=== PATIENT | female | born 1960 | race Two or more races ===

== ENCOUNTER 2024-04-29 23:22 | Inpatient (IN) | payer BC, SELFPAY ==
--- NOTE | 2024-04-29 | ECG_ITS ---
Test Reason : CHEST PAIN Blood Pressure : / mmHG Vent. Rate : 075 BPM Atrial Rate : 075 BPM P-R Int : 156 ms QRS Dur : 074 ms QT Int : 394 ms P-R-T Axes : 044 -28 018 degrees QTc Int : 439 ms Normal sinus rhythm Minimal voltage criteria for LVH, may be normal variant ( R in aVL ) Borderline ECG No previous ECGs available Referred By: Generic ED Physician Electronically Signed By:Vitor Perez
--- NOTE | ~2024-04-29 | XR_ITS ---
EXAMINATION: XR CHEST CLINICAL INFORMATION: chest pain COMPARISON: None available. TECHNIQUE: 2 views of the chest were obtained. FINDINGS: No significant abnormality is noted involving the heart, lungs, mediastinum, bony thorax or soft tissues. XR/XR chest 2V IMPRESSION: Unremarkable examination. Electronically signed by: Jonathon Hardwick MD 04/30/2024 03:50 AM [facility] [place]
[2024-04-29 23:25] VITALS: BP 182/93; PULSE 82; RESP 14; TEMP 36.3; O2SAT 96; BMI 35.1
[2024-04-29 23:51] LABS: Basophils Percent Auto 0.4 % (0-2); Eosinophils Absolute Auto 0.3 X10*3/uL (0.0-0.4); Eosinophils Percent Auto 2.8 % (0-4); Hemoglobin 13.5 g/dl (12.0-16.0); Imm Gran Abs Auto 0.02 X10*3/uL (0.00-0.03); Imm Gran Pct Auto 0.2 % (0.0-0.4); Lymphocytes Absolute Auto 2.7 X10*3/uL (1.2-4.9); Lymphocytes Percent Auto 28.3 % (20-40); MANUAL DIFF FLAG NO; Mean Corpuscular HGB Conc 33.8 g/dl (31.0-35.0); Mean Corpuscular Hemoglobin 28.5 pg (27.0-33.0); Mean Corpuscular Volume 84.4 fL (80.0-98.0); Mean Platelet Volume 9.7 fL (9.4-12.3); Monocytes Absolute Auto 0.8 X10*3/uL (0.1-1.2); Monocytes Percent Auto 8.6 % (2-11); Neutrophils Absolute Auto 5.6 x10*3/uL (2.0-8.3); Neutrophils Percent Auto 59.7 % (45-73); Platelet Count 330 X10*3/uL (160-400); Red Blood Count 4.74 X10*6/uL (4.20-5.50); Red Cell Distribution Width 13.9 % (11.0-16.0); White Blood Count 9.4 X10*3/uL (4.8-10.8)
[2024-04-30] VITALS (8 sets, daily range): BP systolic 128–167; BP diastolic 72–87; PULSE 60–73; RESP 14–16; TEMP 36.8; O2SAT 93–97
[2024-04-30 00:14] LABS: Alanine Aminotransferase 34 U/L (0-31); Albumin Level 3.9 g/dL (3.5-5.0); Alkaline Phosphatase 88 U/L (39-117); Anion Gap 11 (12-20); Aspartate Amino Transferase 93 U/L (5-31); Bilirubin Total 0.5 mg/dL (0.0-1.0); Blood Urea Nitrogen 10 mg/dL (9-16); Calcium 9.6 mg/dL (8.4-10.2); Carbon Dioxide 26 mmol/L (22-29); Chloride 106 mmol/L (96-108); Creatinine Clr Calc Pharmacy 74.5; Estimated Glomerular Filt Rate > 60; Glucose Random 121 mg/dL (60-115); Potassium 3.7 mmol/L (3.3-5.1); Sodium 139 mmol/L (135-145); Total Protein 8.1 g/dL (6.5-8.0)
[2024-04-30 00:40] LABS: Troponin-I High Sensitivity 7232.9 ng/L (<3.5-17.0)
--- NOTE | 2024-04-30 00:45 | ED.CHESTPAIN ---
HPI - Chest Pain General Chief Complaint: Chest Pain Stated Complaint: chest pains Time Seen by Provider: 04/30/24 00:45 Source: patient Mode of arrival: ambulatory Limitations: no limitations History of Present Illness ED Provider: HPI narrative: Patient no significant past medical history has a strong family history of cardiac disease was at home working sitting on the desk at 14:00 noticed mid chest pain radiating to bilateral chest which lasted for about 2 hours pain was heavy in nature without any radiation no shortness a breath no diaphoresis no nausea no vomit patient never had similar pain in the past patient's took some Tums without much Related Data Home Medications ?Medication ?Instructions ?Recorded ?Confirmed No Known Home Meds 04/30/24 04/30/24 Allergies Allergy/AdvReac Type Severity Reaction Status Date / Time amoxicillin Allergy Rash Verified 04/29/24 23:29 Sulfa (Sulfonamide Allergy Rash Verified 04/29/24 23:29 Antibiotics) Review of Systems Review of Systems: Yes all other systems are reviewed and are negative [facility] Past Medical History Surgical History (Updated 04/30/24 @ 03:54 by Ramakrishna Ibarra MD) Status post hysteroscopic surgical removal of uterine septum Social History Social History Alcohol intake: never Smoked in Last 30 Days: No Use of substances other than those prescribed or required for medical reasons: No Advance Directives: No Do you have a plan to hurt others: No Plan Patient : No Physical Exam Vital Signs: Vital Signs: Last Vital Signs Temp 98.3 F 04/30/24 02:15 Pulse 63 04/30/24 04:54 Resp 16 04/30/24 04:54 BP 128/72 04/30/24 04:54 Pulse Ox 96 04/30/24 04:54 O2 Del Method Room Air 04/30/24 04:54 BMI result Body Mass Index 35.1 Appearance: Alert. Oriented X3. No acute distress. Eyes: PERRLA, No Nystagmus ENT: Pharynx normal. Oral Mucosa moist Neck: Normal inspection. Neck supple. CVS: Normal heart rate and rhythm. Pulses normal. No murmur/rubs/CT Respiratory: No respiratory distress. Equal air entry bilateral, no wheezing/rales/rhonchi Abdomen: Soft and nontender. Bowel sounds are present, no mass palpable, no CVA tenderness Skin: Skin warm and dry. Normal skin color. Normal skin turgor. Extremities: No lower extremity edema. No calf tenderness Neuro: Oriented X 3. No motor deficit. No sensory deficit.No cerebellar signs , cranial nerves II-XII intact Medications Administered Generic Name Dose Route Start Last Admin Trade Name Freq PRN Reason Stop Dose Admin Heparin Sodium/Sodium Chloride 25,000 unit in 250 mls @ 0 mls/hr 04/30/24 01:15 04/30/24 01:26 Heparin Sodium,Porcine/1/2ns IVCONT 12 units/kg/hr .Q0M ANTHONY 9.79 mls/hr Administration Protocol Per Protocol Discontinued Medications Generic Name Dose Route Start Last Admin Trade Name Freq PRN Reason Stop Dose Admin Aspirin 162 mg 04/30/24 01:09 04/30/24 01:13 Aspirin Enteric Coated 81 Mg Tablet.Dr VALENCIA 04/30/24 01:10 162 mg ONCE ONE Administration Atorvastatin Calcium 80 mg 04/30/24 03:58 04/30/24 04:52 Atorvastatin Calcium 80 Mg Tablet PO 04/30/24 03:59 80 mg ONCE ONE Administration Heparin Sodium (Porcine) 5,000 unit 04/30/24 01:03 04/30/24 01:14 Heparin Sodium,Porcine 5,000 Unit/Ml Vial IVPUSH 04/30/24 01:04 5,000 unit ONCE ONE Administration Metoprolol Tartrate 25 mg 04/30/24 04:30 04/30/24 04:52 Metoprolol Tartrate 25 Mg Tablet PO 04/30/24 04:31 25 mg ONCE STA Administration Protocol Nitroglycerin 1 inch 04/30/24 01:09 04/30/24 01:13 Nitroglycerin 2 % Oint 1 Gm Packet TRANSDERMA 04/30/24 01:10 1 inch ONCE ONE Administration Medical Decision Making Medical Decision Making MDM Narrative: Patient with sudden onset of chest pain clinically cardiac in nature no chest pain at this time EkG without any ischemic changes elevated to 7232.9 case discussed with business services vice president Dr. Perez advised heparin, NPO after midnight cardiac catheterization in the a.m. Differential Diagnosis Differential Diagnoses: The differential diagnosis associated with the presentation includes Admission/Observation Consideration of admission/observation: Escalation of care including admission/observation considered Consult Healthcare Provider Management of the patient was discussed with: Hospitalist Lab Data MDM Lab Attestation statement: I reviewed the patient's lab results. 04/30/24 04:27 04/30/24 04:27 Labs: Lab Results 04/29/24 04/29/24 04/30/24 Range/Units 23:44 23:45 00:55 WBC 9.4 (4.8-10.8) X10*3/uL RBC 4.74 (4.20-5.50) X10*6/uL Hgb 13.5 (12.0-16.0) g/dl Hct 40.0 (37.0-47.0) % MCV 84.4 (80.0-98.0) fL MCH 28.5 (27.0-33.0) pg MCHC 33.8 (31.0-35.0) g/dl RDW 13.9 (11.0-16.0) % Plt Count 330 (160-400) X10*3/uL MPV 9.7 (9.4-12.3) fL Immature Gran % (Auto) 0.2 (0.0-0.4) % Neut % (Auto) 59.7 (45-73) % Lymph % (Auto) 28.3 (20-40) % [place] % (Auto) 8.6 (2-11) % Eos % (Auto) 2.8 (0-4) % Baso % (Auto) 0.4 (0-2) % Lymph # (Auto) 2.7 (1.2-4.9) X10*3/uL [place] # (Auto) 0.8 (0.1-1.2) X10*3/uL Eos # (Auto) 0.3 (0.0-0.4) X10*3/uL Baso # (Auto) 0.0 (0.0-0.2) X10*3/uL Abs Immat Gran (auto) 0.02 (0.00-0.03) X10*3/uL Absolute Neuts (auto) 5.6 (2.0-8.3) x10*3/uL Absolute Nucleated RBC 0.000 (0.0-0.012) X10*3/uL Nucleated RBC % (auto) 0.0 (0.0-0.2) /100WBC PT 12.5 H (10.9-12.4) SEC INR 1.1 (0.9-1.1) APTT 29.3 (26.0-36.8) SEC Hold Blue Top SEE NOTE Sodium 139 (135-145) mmol/L Potassium 3.7 (3.3-5.1) mmol/L Chloride 106 (96-108) mmol/L Carbon Dioxide 26 (22-29) mmol/L Anion Gap 11 L (12-20) BUN 10 (9-16) mg/dL Creatinine 0.75 (0.5-1.4) mg/dL Estim Creat Clear Calc 74.5 Estimated GFR > 60 Random Glucose 121 H (60-115) mg/dL Calcium 9.6 (8.4-10.2) mg/dL Total Bilirubin 0.5 (0.0-1.0) mg/dL AST 93 H (5-31) U/L ALT 34 H (0-31) U/L Alkaline Phosphatase 88 (39-117) U/L Troponin I High Sens 7232.9 H* 7003.3 H* (<3.5-17.0) ng/L Total Protein 8.1 H (6.5-8.0) g/dL Albumin 3.9 (3.5-5.0) g/dL Independent Interpretation I performed an independent interpretation of an: EKG Interpretation: Normal sinus rhythm heart rate 75 beats per minute normal axis no acute ST-T changes no acute ischemia Critical Care Time Critical Care Time Critical Care Time: Yes Total Critical Care Time: 55 Attestation: The patient was critically ill with a high probability of imminent or life threatening deterioration. I spent greater than 60???minutes of discontinuous time evaluating the patient,delivering critical care at the bedside, discussing and evaluating pertinent data with consultants. Critical care time does not include time spent performing separately billable procedures or teaching. Total time spent performing critical care was 55???minutes. Discharge Plan Discharge Clinical Impression: NSTEMI (non-ST elevated myocardial infarction) Patient Disposition: Admitted As Inpatient
--- NOTE | 2024-04-30 00:47 | PC.NURSE ---
critical troponin received from lab and pt brought back to ED room 4. MD Burton notified. pt ambulated into tx room steady gait, changed into gown and placed onto patient monitor.
--- NOTE | 2024-04-30 00:57 | ECG_ITS ---
Test Reason : REPEAT Blood Pressure : / mmHG Vent. Rate : 080 BPM Atrial Rate : 080 BPM P-R Int : 162 ms QRS Dur : 074 ms QT Int : 376 ms P-R-T Axes : 052 -12 009 degrees QTc Int : 433 ms Normal sinus rhythm Normal ECG When compared with ECG of 29-APR-2024 23:28, No significant change was found Referred By: Ayaan Burton Electronically Signed By:Vitor Perez
[2024-04-30 01:12] LABS: INTERNATIONAL NORM RATIO 1.1 (0.9-1.1); Prothrombin Time 12.5 SEC (10.9-12.4)
[2024-04-30] MEDS: Aspirin Enteric Coated 81 MG TABLET.DR 162 MG PO (01:13)
[2024-04-30] MEDS: Nitroglycerin 2 % Oint 1 GM Packet 1 INCH TRANSDERMA (01:13)
[2024-04-30 01:14] LABS: Partial Thromboplastin Time 29.3 SEC (26.0-36.8)
[2024-04-30] MEDS: Heparin Sodium,Porcine 5,000 UNIT/ML VIAL 5000 UNIT IVPUSH (01:14)
[2024-04-30] MEDS: Heparin Sodium,Porcine/1/2NS 25,000 UNIT/250 ML IV.SOLN 9.79 UNIT IVCONT (01:26)
[2024-04-30 01:46] LABS: Troponin-I High Sensitivity 7003.3 ng/L (<3.5-17.0)
--- NOTE | 2024-04-30 02:48 | PC.NURSE ---
pt ambulatory with steady gait to ed4 from after critical result received for elevated lab results reported to MD Burton. pt changed over to hospital attire, placed on continuous cardiac, o2 and BP monitoring. 2x iv established. labs and repeat ekg obtained. pt is well appearing axox4 speaking full clear sentences, skin wpd, denies sob/n/v at this time, reporting L. sided chest discomfort without radiation. pt states sx onset 1400 and lasted until approx 1600. pt has not been evaluated medically in years and is not on any medications but reports family hx of htn/cardiac issues. MD educated pt on lab results and findings, pt denied questions/concerns. heparin drip started per jul. hospitalist to bedside at this time for admission, awaiting admit orders. pt moved to ed3 per pt request/propellant charge loader approval for private room. at bedside. call farah within reach. pt remains on continuous cardiac, o2 and BP monitoring.
--- NOTE | 2024-04-30 03:13 | PM.IMHP ---
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 Onset of pain was spontaneous with no readily identifiable exacerbating factors. She describes the chest tightness as radiating across her chest. She felt like she had a heartburn so took some TUMS and Abby-seltzer without any relief. She has never had similar pains before and denies any personal history of ACS or family history of premature coronary artery disease. She also denies any associated shortness of breath, nausea, vomiting, diaphoresis or palpitations. Initial workup done in the emergency room was notable for elevated high sensitivity troponin I at 7003 ng/L. She also had minimally elevated AST and ALT. EKG did not show any acute ischemic changes. She received aspirin and was started on heparin drip following which admission was requested. When I saw her, she was fairly comfortable though still reported some left-sided chest discomfort. Review of Systems Review of Systems: Twelve system review was completed and is noted above in the HPI. Otherwise the rest of the system review is negative. [facility] Functional capacity: independent ambulation Patient : No Pertinent family history: Father: Type 2 diabetes mellitus; coronary artery disease; data age 83 of kidney failure. Mother: Type 2 diabetes mellitus. Brother: WBC is mellitus. Surgical History (Updated 04/30/24 @ 03:54 by Ramakrishna Ibarra MD) Status post hysteroscopic surgical removal of uterine septum Social History Alcohol intake: never Meds Allergies Allergy/AdvReac Type Severity Reaction Status Date / Time amoxicillin Allergy Rash Verified 04/29/24 23:29 Sulfa (Sulfonamide Allergy Rash Verified 04/29/24 23:29 Antibiotics) Home Medications ?Medication ?Instructions ?Recorded ?Confirmed ?Last Taken ?Type No Known Home Meds 04/30/24 04/30/24 Unknown History Physical Exam Vital Signs and Narrative: Vital Signs: Last Vital Signs Temp 98.3 F 04/30/24 02:15 Pulse 65 04/30/24 02:15 Resp 14 04/30/24 02:15 BP 158/85 H 04/30/24 02:15 Pulse Ox 96 04/30/24 02:15 O2 Del Method Room Air 04/30/24 02:15 BMI result Body Mass Index 35.1 General: Middle aged female in bed. Awake and alert. In no obvious respiratory distress. Psychiatric: Pleasant with normal affect. HEENT: Normocephalic, atraumatic. No pallor or jaundice. Moist oral mucus membranes Neck: Supple. No JVD Lungs: Clear to auscultation bilaterally. No rales, rhonchi or wheezes Heart: RRR. Normal s1/s2. No murmurs, rubs or gallops. No peripheral edema. Abdomen: Scaphoid, Soft, non-tender. Normoactive bowel sounds. No visceromegaly. Genitourinary: Deferred Back/Spine/Pelvis: Deferred Skin: Warm, dry, well perfused. Normal turgor. No mottling. Normal capillary refill (< 2 seconds). Neurologic: Awake and alert. Intact speech & cognition. Normal gait & balance. CN II-XII grossly normal. Extremities: Normal muscle bulk, tone and power. No obvious deformities. No peripheral edema. Good peripheral pulses. Results Labs 04/29/24 23:45 04/29/24 23:45 Labs: Laboratory Results - last 24 hr 04/29/24 04/29/24 04/30/24 23:44 23:45 00:55 MCV 84.4 MCH 28.5 MCHC 33.8 RDW 13.9 Plt Count 330 MPV 9.7 Immature Gran % (Auto) 0.2 Neut % (Auto) 59.7 Lymph % (Auto) 28.3 [place] % (Auto) 8.6 Eos % (Auto) 2.8 Baso % (Auto) 0.4 Lymph # (Auto) 2.7 [place] # (Auto) 0.8 Eos # (Auto) 0.3 Baso # (Auto) 0.0 Abs Immat Gran (auto) 0.02 Absolute Neuts (auto) 5.6 Absolute Nucleated RBC 0.000 Nucleated RBC % (auto) 0.0 PT 12.5 H INR 1.1 APTT 29.3 Hold Blue Top SEE NOTE Anion Gap 11 L Estim Creat Clear Calc 74.5 Estimated GFR > 60 Random Glucose 121 H Calcium 9.6 Total Bilirubin 0.5 AST 93 H ALT 34 H Alkaline Phosphatase 88 Troponin I High Sens 7232.9 H* 7003.3 H* Total Protein 8.1 H Albumin 3.9 ECG ECG interpretation date: 04/30/24 ECG interpretation time: 04:00 Prior ECG tracings: available for review Interpretation: Normal sinus rhythm at 75 beats per minute no acute ischemic changes. Assessment and Plan (1) NSTEMI (non-ST elevated myocardial infarction): Start date: 04/29/24 Status: Acute 63-year-old female with no significant medical problems here with #NSTEMI -she presents with chest pain that is atypical for ACS -found with elevated high sensitivity troponin I at 7003 ng/liter -admit and continue heparin drip, topical nitroglycerin,, aspirin, beta blockers and statins -Cardiology consult & 2D echo in the morning -will benefit from cardiac catheterization. Total time managing care of this patient today: 80 minutes. Quality Stroke Does the patient have a stroke diagnosis?: No VTE Prior VTE?: No VTE Risk Level:: Medical - moderate - high VTE Device Contraindication: Treatment Not Indicated VTE Drug Contraindication: N/A - Med Ordered
[2024-04-30 04:46] LABS: MANUAL DIFF FLAG NO
[2024-04-30 04:48] LABS: Basophils Absolute Auto 0.1 X10*3/uL (0.0-0.2); Basophils Percent Auto 0.6 % (0-2); Eosinophils Absolute Auto 0.2 X10*3/uL (0.0-0.4); Eosinophils Percent Auto 2.4 % (0-4); Hemoglobin 12.9 g/dl (12.0-16.0); Imm Gran Abs Auto 0.03 X10*3/uL (0.00-0.03); Imm Gran Pct Auto 0.3 % (0.0-0.4); Lymphocytes Absolute Auto 1.9 X10*3/uL (1.2-4.9); Lymphocytes Percent Auto 20.6 % (20-40); Mean Corpuscular HGB Conc 33.1 g/dl (31.0-35.0); Mean Corpuscular Hemoglobin 28.2 pg (27.0-33.0); Mean Corpuscular Volume 85.3 fL (80.0-98.0); Mean Platelet Volume 9.8 fL (9.4-12.3); Monocytes Absolute Auto 0.7 X10*3/uL (0.1-1.2); Monocytes Percent Auto 7.3 % (2-11); Neutrophils Absolute Auto 6.4 x10*3/uL (2.0-8.3); Neutrophils Percent Auto 68.8 % (45-73); Platelet Count 324 X10*3/uL (160-400); Red Blood Count 4.57 X10*6/uL (4.20-5.50); Red Cell Distribution Width 13.9 % (11.0-16.0); White Blood Count 9.3 X10*3/uL (4.8-10.8)
[2024-04-30] MEDS: Metoprolol Tartrate 25 MG TABLET PO (04:52)
[2024-04-30] MEDS: Atorvastatin Calcium 80 MG TABLET PO (04:52)
[2024-04-30 05:10] LABS: Anion Gap 14 (12-20); Blood Urea Nitrogen 9 mg/dL (9-16); Carbon Dioxide 24 mmol/L (22-29); Chloride 107 mmol/L (96-108); Cholesterol 140 mg/dL (<200); Creatinine Clr Calc Pharmacy 76.5; Estimated Glomerular Filt Rate > 60; Glucose Random 117 mg/dL (60-115); HDL Cholesterol 42 mg/dL (>40); LDL Cholesterol Calculated 87 mg/dL (<100); Potassium 3.7 mmol/L (3.3-5.1); Sodium 141 mmol/L (135-145); Triglycerides 57 mg/dL (<150)
[2024-04-30 05:25] LABS: Thyroid Stimulating Hormone 0.84 uIU/mL (0.32-4.0)
[2024-04-30] MEDS: Aspirin 81 MG TAB.CHEW PO (08:34)
[2024-04-30] MEDS: Acetaminophen 325 MG TABLET 650 MG PO (08:34)
[2024-04-30 08:35] LABS: PTT Heparin Drip 67.7 SEC (53-77.9)
--- NOTE | 2024-04-30 08:55 | PHA.MEDREC ---
Addendum entered by Barrie Haider RPh 04/30/24 09:45: Med rec reviewed by Bella. Original Note: Pharmacy Consult ? Medication Reconciliation Pharmacy has completed the medication reconciliation. Spoke with patient and she confirmed she has been alternating and taking Tylenol 500mg tabs 1-2 daily as needed for pain and Advil 200mg 1-2 daily as needed for pain and states she last took the Tylenol yesterday and the Advil on Sunday.
--- NOTE | 2024-04-30 09:13 | P.CONCA_ITS ---
History of Present Illness History of Present Illness Date of Service: 04/30/24 Requesting physician: Dusty Napoles Chief complaint: NSTEMI Narrative: Pleasant 63 year female with no known medical history presenting with chest discomfort starting around 14:23 yesterday while she was at work. 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 She said she had indigestion like feeling as well as chest pressure. She said she took some Tums and Abby-Range which improved the discomfort but it did not go away completely. With these symptoms she presented to [facility] [place]. EKGs did not show any obvious changes except some nonspecific T-wave changes in inferior leads. She ruled in for NSTEMI and was started on heparin drip. She is saying she has slight discomfort in the chest currently but the severe indigestion like feeling that was present when the symptoms started yesterday has completely resolved. No bleeding issues. She has allergies to amoxicillin and sulfa. [facility] Surgical History Surgical History (Updated 04/30/24 @ 03:54 by Ramakrishna Ibarra MD) Status post hysteroscopic surgical removal of uterine septum Social History Social History Alcohol intake: never Meds Allergies Allergy/AdvReac Type Severity Reaction Status Date / Time amoxicillin Allergy Rash Verified 04/29/24 23:29 Sulfa (Sulfonamide Allergy Rash Verified 04/29/24 23:29 Antibiotics) Active Medications: Current Medications Acetaminophen (Acetaminophen 325 Mg Tablet) 650 mg PO Q6H PRN PRN Reason: Pain, Mild (Pain Scale 1-3), fever or headache Last Admin: 04/30/24 08:34 Dose: 650 mg Aspirin (Aspirin 81 Mg Tab.Chew) 81 mg PO DAILY ANTHONY Last Admin: 04/30/24 08:34 Dose: 81 mg Atorvastatin Calcium (Atorvastatin Calcium 80 Mg Tablet) 80 mg PO BEDTIME ANTHONY Calcium Carbonate (Calcium Carbonate 750 Mg Tab.Chew) 750 mg PO Q4H PRN PRN Reason: Heartburn Heparin Sodium (Porcine) (Heparin Sodium,Porcine 5,000 Unit/Ml Vial) 3,300 unit 40 unit/kg (3300 unit) IVPUSH PROTOCOL BOLUS PRN PRN Reason: 40 unit/kg - Heparin Protocol Heparin Sodium (Porcine) (Heparin Sodium,Porcine 5,000 Unit/Ml Vial) 6,500 unit 80 unit/kg (6500 unit) IVPUSH PROTOCOL BOLUS PRN PRN Reason: 80 unit/kg - Heparin Protocol Heparin Sodium/Sodium Chloride (Heparin Sodium,Porcine/1/2ns) 25,000 unit in 250 mls @ 0 mls/hr IVCONT .Q0M [facility]; Protocol Last Admin: 04/30/24 01:26 Dose: 12 units/kg/hr, 9.79 mls/hr Magnesium Hydroxide (Milk Of Magnesia 30 Ml Oral.Susp) 30 ml PO DAILY PRN PRN Reason: Constipation Melatonin (Melatonin 3 Mg Tablet) 6 mg PO BEDTIME PRN PRN Reason: Insomnia Metoprolol Tartrate (Metoprolol Tartrate 25 Mg Tablet) 25 mg PO BID [facility]; Protocol Morphine Sulfate (Morphine Sulfate 4 Mg/Ml Cartridge) 2 mg IVPUSH Q4H PRN; Protocol PRN Reason: Pain, Severe (Pain Scale 7-10) Nitroglycerin (Nitroglycerin 0.4 Mg Tab.Subl) 0.4 mg SUBLINGUAL Q5MX3 PRN PRN Reason: Chest Pain Sodium Chloride (0.9 % Sodium Chloride Flush 3 Ml Syringe) 3 ml IVFLUSH QSHIFT [facility] Last Admin: 04/30/24 08:21 Dose: Not Given Home Medications ?Medication ?Instructions ?Recorded ?Confirmed ?Last Taken ?Type acetaminophen 500 mg tablet 500 - 1,000 mg PO DAILY PRN Pain 04/30/24 04/30/24 04/29/24 History ibuprofen 200 mg tablet (Advil) 200 - 400 mg PO DAILY PRN Pain 04/30/24 04/30/24 04/27/24 History Physical Exam 2 Vital Signs: Vital Signs: Last Vital Signs Temp 98.3 F 04/30/24 02:15 Pulse 63 04/30/24 04:54 Resp 16 04/30/24 04:54 BP 128/72 04/30/24 04:54 Pulse Ox 96 04/30/24 04:54 O2 Del Method Room Air 04/30/24 04:54 BMI result Body Mass Index 35.1 GENERAL APPEARANCE: in no acute distress, pleasant. NECK: no carotid bruit, no jugular venous distention. SKIN: no suspicious lesions, warm and dry. HEART: no murmurs, regular rate and rhythm. LUNGS: clear to auscultation bilaterally. ABDOMEN: soft, nontender. EXTREMITIES: no edema. PERIPHERAL PULSES: equal. NEUROLOGIC: No gross deficits, AAO X 3 Objective Labs and Meds 04/30/24 04:27 04/30/24 04:27 Lab results: Laboratory Results - last 24 hr 04/29/24 04/29/24 04/30/24 23:44 23:45 00:55 WBC 9.4 RBC 4.74 Hgb 13.5 Hct 40.0 MCV 84.4 MCH 28.5 MCHC 33.8 RDW 13.9 Plt Count 330 MPV 9.7 Immature Gran % (Auto) 0.2 Neut % (Auto) 59.7 Lymph % (Auto) 28.3 [place] % (Auto) 8.6 Eos % (Auto) 2.8 Baso % (Auto) 0.4 Lymph # (Auto) 2.7 [place] # (Auto) 0.8 Eos # (Auto) 0.3 Baso # (Auto) 0.0 Abs Immat Gran (auto) 0.02 Absolute Neuts (auto) 5.6 Absolute Nucleated RBC 0.000 Nucleated RBC % (auto) 0.0 PT 12.5 H INR 1.1 APTT 29.3 aPTT Heparin Protocol Hold Blue Top SEE NOTE Sodium 139 Potassium 3.7 Chloride 106 Carbon Dioxide 26 Anion Gap 11 L BUN 10 Creatinine 0.75 Estim Creat Clear Calc 74.5 Estimated GFR > 60 Random Glucose 121 H Calcium 9.6 Magnesium Total Bilirubin 0.5 AST 93 H ALT 34 H Alkaline Phosphatase 88 Troponin I High Sens 7232.9 H* 7003.3 H* Total Protein 8.1 H Albumin 3.9 Triglycerides Cholesterol LDL Cholesterol, Calc HDL Cholesterol TSH 04/30/24 04/30/24 04:27 08:21 WBC 9.3 RBC 4.57 Hgb 12.9 Hct 39.0 MCV 85.3 MCH 28.2 MCHC 33.1 RDW 13.9 Plt Count 324 MPV 9.8 Immature Gran % (Auto) 0.3 Neut % (Auto) 68.8 Lymph % (Auto) 20.6 [place] % (Auto) 7.3 Eos % (Auto) 2.4 Baso % (Auto) 0.6 Lymph # (Auto) 1.9 [place] # (Auto) 0.7 Eos # (Auto) 0.2 Baso # (Auto) 0.1 Abs Immat Gran (auto) 0.03 Absolute Neuts (auto) 6.4 Absolute Nucleated RBC 0.000 Nucleated RBC % (auto) 0.0 PT INR APTT aPTT Heparin Protocol 67.7 Hold Blue Top Sodium 141 Potassium 3.7 Chloride 107 Carbon Dioxide 24 Anion Gap 14 BUN 9 Creatinine 0.73 Estim Creat Clear Calc 76.5 Estimated GFR > 60 Random Glucose 117 H Calcium 9.0 D Magnesium 2.0 Total Bilirubin AST ALT Alkaline Phosphatase Troponin I High Sens Total Protein Albumin Triglycerides 57 Cholesterol 140 LDL Cholesterol, Calc 87 HDL Cholesterol 42 TSH 0.84 Imaging Radiologist's impression: Impressions Chest X-Ray 04/29/24 23:59 IMPRESSION: Unremarkable examination. Electronically signed by: Jonathon Hardwick MD 04/30/2024 03:50 AM EST Assessment and Plan (1) NSTEMI (non-ST elevated myocardial infarction): Status: Acute Plan 63-year-old female presenting for chest discomfort and non ST-elevation MO. She is currently stable and symptoms have improved significantly. She has been on heparin drip. Continue aspirin atorvastatin and metoprolol. I was thinking about loading her with Plavix or Brilinta but would try to do angiography today and load her on the table. In case she has multivessel disease then sometimes pre loading can delay surgery. Keep NPO for now. She is already on the catheterization list and we will try to do the procedure today afternoon. Thank you for allowing me to participate in the care of your patient. Please feel free to contact me if you have any questions. Procedures Date of Service Date of Service: 04/30/24
--- NOTE | 2024-04-30 10:31 | MHC.CM.PN ---
Pt. lives with her , she is independent, no home health services or DME. She does not have a PCP, brochure with [facility] PCP info given. HCP will be completed here and added to chart. Family will transport home at DC, DCP: home, self care. CM to follow for DC needs.
--- NOTE | 2024-04-30 10:41 | PM.DS ---
DS: Providers Provider Date of Service: 04/30/24 Date of admission: 04/30/24 02:59 Date of discharge: 04/30/24 Primary care physician: None Physician Consults: 04/30/24 08:47 Consult to Cardiology Routine Consulting Provider: [facility] Reason for consultation: NSTEMI Has provider been notified: Yes DS: Diagnosis Discharge Diagnosis (1) NSTEMI (non-ST elevated myocardial infarction): Status: Acute DS: Summary Hospital Course Hospital Course: from initial hpi: 63-year-old female with no significant past medical history who presents to the emergency room from home accompanied by her for evaluation of chest pain/tightness that began this morning 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 Onset of pain was spontaneous with no readily identifiable exacerbating factors. She describes the chest tightness as radiating across her chest. She felt like she had a heartburn so took some TUMS and Abby-seltzer without any relief. She has never had similar pains before and denies any personal history of ACS or family history of premature coronary artery disease. She also denies any associated shortness of breath, nausea, vomiting, diaphoresis or palpitations. Initial workup done in the emergency room was notable for elevated high sensitivity troponin I at 7003 ng/L. She also had minimally elevated AST and ALT. EKG did not show any acute ischemic changes. She received aspirin and was started on heparin drip following which admission was requested. When I saw her, she was fairly comfortable though still reported some left-sided chest discomfort. hospital course: Patient was admitted for NSTEMI with troponins around 7000, was started on heparin infusion, aspirin, beta-juana, statin, was seen by Cardiology recommended transfer to [facility] for cardiac catheterization to which patient will be discharged. Time Attestation Discharge Coordination Time (in mins): 32 Quality: Safe Use of Opioids Does Pt have an Active Cancer Diagnosis on the Problem List?: No Quality: Stroke Does the patient have a stroke diagnosis?: No Physical Exam Vital Signs: Vital Signs: Last Vital Signs Temp 98.3 F 04/30/24 02:15 Pulse 63 04/30/24 04:54 Resp 16 04/30/24 04:54 BP 128/72 04/30/24 04:54 Pulse Ox 96 04/30/24 04:54 O2 Del Method Room Air 04/30/24 04:54 BMI result Body Mass Index 35.1 General: AO X 3, no acute distress Resp: CTA bilateral, no accessory muscles used CVS: S1,S2,RRR GI: soft, non tender, non distended Neuro: motor grossly intact, alert Psych: appropriate affect, appropriate insight DS: Data Data Completed and Pending Labs on day of discharge: Laboratory Results - last 24 hr 04/29/24 04/29/24 04/30/24 23:44 23:45 00:55 WBC 9.4 RBC 4.74 Hgb 13.5 Hct 40.0 MCV 84.4 MCH 28.5 MCHC 33.8 RDW 13.9 Plt Count 330 MPV 9.7 Immature Gran % (Auto) 0.2 Neut % (Auto) 59.7 Lymph % (Auto) 28.3 Petroleum % (Auto) 8.6 Eos % (Auto) 2.8 Baso % (Auto) 0.4 Lymph # (Auto) 2.7 Petroleum # (Auto) 0.8 Eos # (Auto) 0.3 Baso # (Auto) 0.0 Abs Immat Gran (auto) 0.02 Absolute Neuts (auto) 5.6 Absolute Nucleated RBC 0.000 Nucleated RBC % (auto) 0.0 PT 12.5 H INR 1.1 APTT 29.3 aPTT Heparin Protocol Hold Blue Top SEE NOTE Sodium 139 Potassium 3.7 Chloride 106 Carbon Dioxide 26 Anion Gap 11 L BUN 10 Creatinine 0.75 Estim Creat Clear Calc 74.5 Estimated GFR > 60 Random Glucose 121 H Calcium 9.6 Magnesium Total Bilirubin 0.5 AST 93 H ALT 34 H Alkaline Phosphatase 88 Troponin I High Sens 7232.9 H* 7003.3 H* Total Protein 8.1 H Albumin 3.9 Triglycerides Cholesterol LDL Cholesterol, Calc HDL Cholesterol TSH 04/30/24 04/30/24 04:27 08:21 WBC 9.3 RBC 4.57 Hgb 12.9 Hct 39.0 MCV 85.3 MCH 28.2 MCHC 33.1 RDW 13.9 Plt Count 324 MPV 9.8 Immature Gran % (Auto) 0.3 Neut % (Auto) 68.8 Lymph % (Auto) 20.6 Petroleum % (Auto) 7.3 Eos % (Auto) 2.4 Baso % (Auto) 0.6 Lymph # (Auto) 1.9 Petroleum # (Auto) 0.7 Eos # (Auto) 0.2 Baso # (Auto) 0.1 Abs Immat Gran (auto) 0.03 Absolute Neuts (auto) 6.4 Absolute Nucleated RBC 0.000 Nucleated RBC % (auto) 0.0 PT INR APTT aPTT Heparin Protocol 67.7 Hold Blue Top Sodium 141 Potassium 3.7 Chloride 107 Carbon Dioxide 24 Anion Gap 14 BUN 9 Creatinine 0.73 Estim Creat Clear Calc 76.5 Estimated GFR > 60 Random Glucose 117 H Calcium 9.0 D Magnesium 2.0 Total Bilirubin AST ALT Alkaline Phosphatase Troponin I High Sens Total Protein Albumin Triglycerides 57 Cholesterol 140 LDL Cholesterol, Calc 87 HDL Cholesterol 42 TSH 0.84 Discharge Plan Discharge Anticipated Discharge Date/Time: 04/30/24 10:38 Patient Disposition: Xfer Acute Care Hospital Discharge Diagnosis: nstemi Referrals: Physician,None [Primary Care Provider] - 1 Week Discharge Medications: New heparin(porcine) in 0.45% NaCl 25,000 unit/250 mL Parenteral Solution 25,000 unit continuous IV infusion .Q0M Qty: 0 0RF atorvastatin 80 mg Tablet 80 mg PO BEDTIME Qty: 0 0RF nitroglycerin [Nitrostat] 0.4 mg Tablet, Sublingual 0.4 mg sublingual Q5MX3 PRN (Reason: Chest Pain) Qty: 0 0RF aspirin 81 mg Tablet,Chewable 81 mg PO DAILY Qty: 0 0RF metoprolol tartrate 25 mg Tablet 25 mg PO BID Qty: 0 0RF Protocol: Hold for SBP/HR < HOLD for SBP < : 90 HOLD for HR < : 60 Continued acetaminophen 500 mg Tablet 500 - 1,000 mg PO DAILY PRN (Reason: Pain) ibuprofen [Advil] 200 mg Tablet 200 - 400 mg PO DAILY PRN (Reason: Pain) Discharge Orders: Discharge Order (Routine); Ordered 04/30/24 Ordered By: Dusty Napoles Diet: Advance to usual diet Activity on Discharge: As tolerated Stand Alone Forms: Patient Portal Discharge page Print Language: Scottish Care Plan Goals: manage nstemi Health Concerns: nstemi Plan of Treatment: transfer to [facility] [place] for cardiac cath Assessment: see above
--- NOTE | 2024-04-30 11:22 | MHC.EDTECH ---
@11:15AM... CALL RECEIVED FROM KENNETH [facility] [place] LINE W/ROOM ASSIGNMENT [employer] 7 ROOM 25 RN TO RN: [phone] ACCEPTING MD: DR CHAN
--- NOTE | 2024-04-30 12:06 | PC.NURSE ---
Report given to RN at [address]
--- OUTSIDE RECORDS SUMMARY | 2024-05-06 16:03 | XMS_ITS | Continuity of Care Document ---
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 Name Role Phone Not on Staff, PCP Primary Care Physician Unavail able [place] [facility] [place] - 05/01/[address] [address]- Discharge Disposition: A-D/C Home Attending Physician: Christiano Cade MD Admitting Physician: Onel Mayers MD Referring Physician: Onel Mayers MD Encounter Type: Disch IP Allergies, Adverse Reactions, Alerts Substance Criticality Severity Reaction Reaction Severity Status penicillin Active sulfa drugs Active Immunizations Given and Recorded Vaccine Date Status Refusal Reason SARS-CoV-2 (COVID-19) mRNA-1273 vaccine 09/28/20 R ecorded Medications acetaminophen 500 mg oral tablet 2 tablet = 1,000 mg, By Mouth, Every 6 hours, PRN Pain , Mild, 0 Refills, Maintenance, 04/30/24 3:05:00 PM EST, Tablet, Partial fill upon patient request if the prescription is for a schedule II opioid drug. Start Date: 04/30/24 Status: Ordered Repeat number: 1 Acetaminophen Tablet 650 mg, Tablet, By Mouth, Every 4 hours, PRN for Pain , Mild, Temperature Greater than 100.5, Routine, 04/30/24 12:59:00 PM EST Start Date: 04/30/24 Stop Date: 05/02/24 Status: Discontinued Repeat number: 1 Advil 200 mg oral tablet 2 tablet = 400 mg, By Mouth, Every 6 hours, PRN for pain, # 120 tablet, 0 Refills, Maintenance, 04/30/24 2:13:00 PM EST, Tablet, Partial fill upon patient request if the prescription is for a scheduleII opioid drug. Start Date: 04/30/24 Status: Ordered Quantity: 120.0 Unit: tablet Repeat number: 1 aspirin 81 mg oral tablet, chewable 1 tablet = 81 mg, By Mouth, Daily, # 30 tablet, 1 Refills, Maintenance, 05/01/24 7:31:00 AM EST, Chew Tablet, [facility], Partial fill upon patient request if the prescription is for a schedule II opioid drug., 152, cm, 05/01/24 1:24:00 EST, Height, 79.6, kg, 04/30/24 12:30:00 EST, DryWeight Start Date: 05/01/24 Stop Date: 06/30/24 Status: Ordered Quantity: 30.0 Unit: tablet Repeat number: 2 metoprolol 25 mg oral tablet 25 mg, 1, tablet, By Mouth, 2 times a day, # 60 tablet, Refills 1, Tot. Refills 1, Maintenance, 05/01/24 7:32:00 AM EST, Route to Pharmacy Electronically, [facility], Partial fill upon patient request if the prescription is for a schedule II opioid drug., 152, cm, 05/01/24 1:24:00 EST,Height, 79.6, kg, 04/30/24 12:30:00 EST, Dry Weight Start Date: 05/01/24 Stop Date: 06/30/24 Status: Ordered Quantity: 60.0 Unit: tablet Repeat number: 2 metoprolol 25 mg oral tablet 25 mg, Tablet, By Mouth, 05/01/24 9:00:00 AM EST Start Date: 05/01/24 Stop Date: 05/01/24 Status: Completed Repeat number: 1 Plavix 75 mg oral tablet 75 mg, 1, tablet, By Mouth, Daily, # 30 tablet, Refills 1, Tot. Refills 1, Maintenance, 05/01/24 7:32:00 AM EST, Route to Pharmacy Electronically, [facility], Partial fill upon patient request if the prescription is for a schedule II opioid drug., 152, cm, 05/01/24 1:24:00 EST, Height,79.6, kg, 04/30/24 12:30:00 EST, Dry Weight Start Date: 05/01/24 Stop Date: 06/30/24 Status: Ordered Quantity: 30.0 Unit: tablet Repeat number: 2 Problem List Condition Confirmation Course Effective Dates Status Health St atus Informant Anxiety Confirmed Active Obese class I Confirmed Active Vital Signs Most recent to oldest [Reference Range]: 1 2 3 Height 152 cm (05/01/24 8:25 AM) 152 cm (05/01/24 1:24 AM) 152 cm (04/30/24 7:08 PM) Weight 82.1 kg (05/01/24 5:10 AM) 79.6 kg (04/30/24 2:30 PM) 79.6 kg (04/30/24 12:30 PM) Oxygen Saturation [94-100 %] 95 % (05/01/24 8:25 AM) 96 % (05/01/24 1:24 AM) 96 % (04/30/24 7:08 PM) Pulse Rate [55-90 bpm] 73 bpm (05/01/24 8:25 AM) 73 bpm (05/01/24 8:22 AM) 63 bpm (05/01/24 1:24 AM) Body Mass Index [18.5-24.99 kg/m2] 34.45 kg/m2 *>HHI* (04/30/24 12:30 PM) Blood Pressure [90-138/55-84 mm Hg] 151/74mm Hg *H* (05/01/24 8:25 AM) 151/74mm Hg *H* (05/01/24 8:22 AM) 131/69mm Hg (05/01/24 1:24 AM) Respiratory Rate [16-30 br/min] 18 br/min (05/01/24 2:55 PM) 17 br/min (05/01/24 8:25 AM) 18 br/min (05/01/24 1:24 AM) Temperature [96.8-100.4 DegF] 98.0 DegF (05/01/24 8:25 AM) 98.1 DegF (05/01/24 1:24 AM) 98.1 DegF (04/30/24 7:00 PM) Mode of Delivery (Oxygen) Room air (05/01/24 8:25 AM) Room air (05/01/24 1:24 AM) Room air (04/30/24 7:08 PM) Blood pressure sites Arm, left (05/01/24 8:25 AM) Arm, left (05/01/24 1:24 AM) Arm, left (04/30/24 7:08 PM) Temperature Route Temporal (05/01/24 8:25 AM) Temporal (05/01/24 1:24 AM) Temporal (04/30/24 7:00 PM) Dry Weight 79.6 kg (04/30/24 12:30 PM) Weight Obtained Via Bed scale (05/01/24 5:10 AM) Social History Social History Type Response Smoking Status Never (less than 100 in lifetime) entered on: 10/27/20 Sex Sex Representation Female (finding) Note * Cassidy Grider: PERFORM, SIGN, VERIFY Event Display: Cardiac Rehab Note Authored Date: [id number] Patient: MADELINE PEREZ Age: 63 years Sex: Female : 1960 Associated Diagnoses: None Author: Cassidy Grider Diagnosis Cardiac Rehab Diagnosis: NSTEMI/SCAD. Pre-exercise Vitals Vital Signs Comment: Reviewed in [facility]. Pre-exercise Physical Examination Neurologic: alert & oriented. Cardiovascular: heart rate regular. Lungs: Normal I:E. Activity Symptoms with Cardiac Rehab Symptoms: No exertional symptoms. Activity Transfers: independent. Ambulate: independent. Patient Education Education: Patient alone, Written material included. Topic: Pathophysiology, Medication education, Role of exercise, Home activity guidelines/limits, Infarct recovery guidelines. Recommendation and Plan Ambulate: 4 times/day. Outpatient follow up recommended: [facility] notified . Cardiac Rehab: Will sign off at this time. * Ana Rodriguez RN: PERFORM Event Display: Discharge/Transfer Note Hospital Authored Date: [id number] Nursing Discharge Note Entered On: 05/01/2024 15:37 EST Performed On: 05/01/2024 15:37 EST by Ana Rodriguez RN Nursing Discharge Note 2 Discharge Time : 05/01/2024 15:15 EST Discharge Level of Care at Discharge : Home/Halfway/Foster Care Patient Left Unit Via : Ambulatory Patient Accompanied Off Unit with : Responsible adult DC Instructions Provided & Signed by Pt : Yes Patient Understands D/C Instructions : Yes Patient Instructions Discharge Signed : Yes Did Pt have Specialty Bed or Wound Vac : No Ana Rodriguez RN 05/01/2024 15:37 EST * Fay DO, Herisha: PERFORM Fay DO, Herisha: PERFORM, MODIFY Fay DO, Herisha: MODIFY, MODIFY Fay DO, Herisha: MODIFY, MODIFY Fay DO, Herisha: MODIFY, MODIFY Fay DO, Herisha: MODIFY, MODIFY Fay DO, Herisha: MODIFY Event Display: Discharge/Transfer Note Hospital Authored Date: [id number] Patient: ??MADELINE PEREZ ? Age:??63 Years?Sex:??Female?:??1960?? 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) _ Discharge Medications Acetaminophen (acetaminophen 500 mg oral tablet)?2?tab(s)?1,000?Milligram?By Mouth?Every 6 hours?as needed?Pain , Mild Aspirin (aspirin 81 mg oral tablet, chewable)?1?tab(s)?81?Milligram?By Mouth?Daily?for 30?Days Clopidogrel (Plavix 75 mg oral tablet)?75?Milligram?1?tablet?By Mouth?Daily?for 30?Days Ibuprofen (Advil 200 mg oral tablet)?2?tab(s)?400?Milligram?By Mouth?Every 6 hours?as needed?for pain Metoprolol (metoprolol 25 mg oral tablet)?25?Milligram?1?tablet?By Mouth?2 times a day?for 30?Days Medications Started Aspirin (aspirin 81 mg oral tablet, chewable)?1?tab(s)?81?Milligram?By Mouth?Daily?for 30?Days Clopidogrel (Plavix 75 mg oral tablet)?75?Milligram?1?tablet?By Mouth?Daily?for 30?Days Metoprolol (metoprolol 25 mg oral tablet)?25?Milligram?1?tablet?By Mouth?2 times a day?for 30?Days ?? 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 Patient was started on aspirin, Plavix, metoprolol.?? Patient is to continue Plavix for 6 months.?? Please follow-up. ?? 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 Please ensure follow-up. Hospital Course Madeline is a 63-year-old female with no significant past medical history who was transferred from [facility] for chest pain and elevated troponins concerning for NSTEMI. Patient is currently s/p cardiac catheterization which was concerning for spontaneous coronary artery dissection of distal OM, for which patient should be started on DAPT for 6 months, and undergo outpatient workup of fibromuscular dysplasia, which will be arranged by cardiology. TTE shows normal EF 55-60% with normalLV side, LV wall thickness, LV systolic function. The mid to distal inferolateral, anterolateral wall is hypokinetic. Aortic valve is mildly thickened with trace AR and no??. Mild mitral annular calcification with trivial MR. Patient is currently hemodynamically stable to be discharged home. ?? NSTEMI (non-ST elevated myocardial infarction) (I21.4) ? 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 The mid todistal inferolateral, anterolateral wall is hypokinetic. Aortic valve is mildly thickened with trace AR and no??. Mild mitral annular calcification with trivial MR. ?? Recommendations: ??-continue Aspirin 81 mg daily and start Clopidogrel 75mg daily - per cardiology will need DAPT for 6 months ??-Continue Metoprolol 25mg BID ??-Stop Atorvastatin (No CAD, no HLD, ASCVD risk is 4.2%) ??-Echocardiogram ??-Cardiology to arrange outpatient workup of carotid/renal artery dysplasia Objective Temperature?98.1 ?(01:25) Systolic Blood Pressure?131 ?(01:25) Diastolic Blood Pressure?69 ?(01:25) Pulse?63 ?(01:25) SpO2?96 ?(01:25) Respiratory Rate?18 ?(01:25) ?? . Physical Exam General: Alert, no acute distress. Eyes:??Pupils are equal, round, and reactive to light. EOMI Ear, Nose, and Throat: Mucous membranes moist Neck:??Supple, CV: RRR, S1 S2 present. No murmurs, gallops, rubs appreciated. No JVD. No edema. Respiratory: All [place] clear to auscultation bilaterally. No wheezes, rales, rhonchi?? Abdominal: Soft, nontender. No rebound tenderness. Normal bowel sounds. : No suprapubic tenderness. Extremities: Full passive ROM Neuro: CN II-XII grossly intact. Moving all extremities normally. Sensation intact bilaterally. Skin: No lesions, wounds, rashes.?? Musculoskeletal:??No joint edema or erythema. Normal range of motion. Consult[facility] EP Cardiology- Dr. Vitor Perez MD. Patient Education Titles [employer] Patient Education - Living Well After a Heart Attack?? [employer] Patient Education - Recognizing a Heart Attack or Angina?? [employer] Patient Education - Symptoms of a Heart Attack?? [employer] Patient Education - Discharge Instructions for Heart Attack?? [employer] Patient Education - Understanding Coronary Artery Disease (CAD)?? [employer] Patient Education - Understanding Spontaneous Coronary Artery Dissection (SCAD)?? Follow-Up Appointments Added Follow Up ?Time Frame ?Comments Not on Staff, PCP Patient Instructions You came to the hospital because you were experiencing chest pain.?? You were found to have a heartattack caused by dissection of one of your main vessels to the heart which was revealed on cardiac catheterization. ?? Please start taking Plavix for 6 months. Please take metoprolol and aspirin indefinitely. ?? Please follow-up with your PCP within 1 week of discharge. ?? Please follow-up with cardiology outpatient. ?? Please return to the hospital if you have any similar chest pain or any other symptoms out of the ordinary. ?? It was a pleasure participating in your care. Post Discharge Care Diet: ??Regular Diet ?? Code Status: ??Full code ?? Condition: ??Good ?? Prognosis: ??Good ?? Results Diagnostic Cardiac Catheterization Conclusions 04/30/24 ?Diagnostic Summary ??63-year-old female presenting with NSTEMI. ?Hemodynamics: ??Normal systemic pressures. ??Normal LVEDP. ??Mild gradient across aortic valve pullback. ?Coronary anatomy: ??Right dominant circulation. ??No significant coronary artery disease noted. ??Spontaneous coronary artery dissection noted in the small OM branch. Culprit ??for presentation. Conservative management. ?Diagnostic Recommendations ??Stop the heparin. ??Continue baby aspirin. Add Plavix 75 mg daily for 6 months. ??Continue beta-blockers. ??We will arrange outpatient testing to look for FMD. Can be discharged home tomorrow. ?? TTE Summary 05/01/24 ??The left ventricular size is normal. Left ventricular wall thickness is ??normal. The LV systolic function is normal . The left ventricular ejection ??fraction is 55-60 %. The mid to distal inferolateral, anterolateral wall is ??hypokinetic . There is no doppler evidence of increased filling pressures. ?The aortic valve appears mildly thickened. There is no aortic stenosis. ??There is trace aortic regurgitation. ?There is mild mitral annular calcification. The mitral valve opening is ??normal. There is trivial mitral regurgitation. ?The right ventricle is normal in size and function. ?Comparison ??No prior study available for comparison. ?? 30??minutes spent on discharge. ?? Patient seen and discussed with attending physician??.??Christiano Cade. ?? Jeet Fay, DO PGY1 Internal Medicine? Attending Attestation: I saw and examined the patient with the resident team and reviewed the charton the day of service. ??I have discussed the case and its management??with the resident as documented in the resident note on the day of service.??I agree with the resident's note and plan as documented. Christiano Cade MD * Jennifer LEWIS, Ana Nelson: PERFORM Event Display: Patient Education/Instruction Authored Date: [id number] Inpatient Adult Discharge Instructions. [address] [address] Name: MADELINE PEREZ : 1960?? Visit: 04/30/2024 12:25?? Current Date: 05/01/2024 14:34 ?? Account: [id number]?? Inpatient Adult Discharge Instructions We would like to thank you for allowing us to assist you with your healthcare needs. The following includes patient education materials and information regarding your injury/illness. Our entire staffstrives to provide an excellent experience for our patients and their families. PLEASE ENSURE YOU FOLLOW-UP PER THE INSTRUCTIONS BELOW! ?? YOUR OPINION IS IMPORTANT TO US! Please complete the survey you may receive by mail or email. Your feedback will be used to make improvements to the healthcare experiences of our patients and their families. Surveys are administered by [employer] ?? If further treatment with your primary care physician or another doctor is recommended, it is important for you to keep the appointment. Call your primary care physician or return to the Emergency Department immediately if your condition worsens, fails to improve, or new symptoms develop. If you need to find a doctor, you can call [facility] for a referral at [phone] or toll free at [phone] or log in to [email or web address] ?? [facility], in keeping with [facility] guidance, no longer requires face masks for staff, patientsor visitors in most situations. Similiar to time spent indoors at other locations, there is the chance that you were exposed to repiratory viruses during your time with us (such as flu or COVID-19). If you develop symptoms concerning for a viral respiratory infection, please seek testing (and treatment if indicated) from your medical provider or home test kit. ?? You can view and manage your care through the patient portal or by using a health care tamika of your choosing. [employer] is a website that allows you to securely view your medical information including your hospital discharge summary, office visit summaries, medications and follow-up visits. You can also request appointments, renew medications, and request access to your medical information using a health care tamika of your choosing, or just ask a question. You can enroll at [email or web address] or register during your next office visit. You have been discharged from [facility], Patient Care Unit: M7??. If you have any questions regarding these instructions, including results of studies pending, afteryou leave, please call us and we will be happy to assist you 18/12. [facility] Your Care Team Attending Physician Christiano Cade MD?? Consulting Providers Christiano Cade MD?? Discharging Providers Jeet Fay DO Your Diagnosis Headache NSTEMI (non-ST elevated myocardial infarction) Spontaneous dissection of coronary artery Tests Performed Below is a partial list of the tests performed during your hospitalization. You may have had other tests and procedures not included in this list. Please discuss all test results with your provider. Basic Metabolic Panel CBC Hemoglobin A1c, (Diagnostic) Magnesium Level Phosphorus Level Troponin T, High Sensitivity Basic Metabolic Panel?? CBC?? Hemoglobin A1C (Monitoring) (Hemoglobin A1c, (Diagnostic))?? High??Sensitivity??Troponin T (Troponin T, High Sensitivity)?? Magnesium Level?? Phosphorus Level?? Primary Care Provider Not on Staff, PCP?? Advance Directive Health Care Proxy on File Yes - Health Care Proxy Discharge Vitals Temperature: 98 DegF Height: 152 cm Pulse Rate: 73 bpm Weight: 82.1 kg Respiratory Rate: 17 br/min Body Mass Index:??34.45 kg/m2??Critical Systolic Blood Pressure:??151 mm Hg??High Body surface area: 1.83 Diastolic Blood Pressure: 74 mm Hg ?? Oxygen Saturation: 95 % ?? Studies Pending All studies ordered during this hospital stay have been completed unless listed below. Please discuss all pending results with your provider listed above in these instructions. ?? CBC?? What to do next Instructions From Your Doctor You came to the hospital because you were experiencing chest pain.?? You were found to have a heartattack caused by dissection of one of your main vessels to the heart which was revealed on cardiac catheterization. ?? Please start taking Plavix for 6 months. Please take metoprolol and aspirin indefinitely. ?? Please follow-up with your PCP within 1 week of discharge. ?? Please follow-up with cardiology outpatient. ?? Please return to the hospital if you have any similar chest pain or any other symptoms out of the ordinary. ?? It was a pleasure participating in your care. ?? Orders??:Regular Diet Status:Full code :Good :Good? 05/01/24 13:38:00 EST?? You Need to Schedule the Following Appointments Follow Up with??Not on Staff, PCP When:??Within 1 week: call to discuss follow up visit Follow Up with??[facility] Why: Please call for Cardiac Rehab appointment Where: [address] [place] [phone] Discharge Medications MADELINE PEREZ :1960 Visit Date:04/30/2024 Medications: Please continue your medications until treatment is completed or stopped by your provider. Medications not listed below should be discontinued. Discuss any questions related to medications with your provider. What How Much When Instructions Next Dose New Aspirin (aspirin 81 mg oral tablet, chewable) 1 tab(s) Oral Daily Duration: 30 Days Refills: 1 Pickup at [place] [address] In the AM New Clopidogrel (Plavix 75 mg oral tablet) 1 tab(s) Oral Daily Duration: 30 Days Refills: 1 Pickup at [place] [address] In the AM New Metoprolol (metoprolol 25 mg oral tablet) 1 tab(s) Oral Twice a day Duration: 30 Days Refills: 1 Pickup at [place] [address] Bedtime tonight Unchanged Acetaminophen (acetaminophen 500 mg oral tablet) 2 tab(s) Oral Every 6 hours as needed for Pain , Mild needed Unchanged Ibuprofen (Advil 200 mg oral tablet) 2 tab(s) Oral Every 6 hours as needed for for pain needed? Pharmacy Information [facility] 3: [address] [place] [phone] Prescription Given During Visit Aspirin (aspirin 81 mg oral tablet, chewable) - 1 tablet = 81 mg, By Mouth, Daily, # 30 tablet, 1 Refills, [facility] 3, [address] [place] [phone] [phone]?? Clopidogrel (Plavix 75 mg oral tablet) - 1 tablet = 75 mg, By Mouth, Daily, # 30 tablet, 1 Refills,[facility], [address] [place] [phone]?? Metoprolol (metoprolol 25 mg oral tablet) - 1 tablet = 25 mg, By Mouth, 2 times a day, # 60 tablet,1 Refills, [facility], [address] [place] [phone] [phone]?? Laboratory Results Below is a partial list of the most recent Laboratory test results done prior to this discharge. You may have had other tests and procedures not included in this list. Please discuss all test resultswith your provider. Est Creatinine Clearance - 65.78 mL/min (05/01/2024) Basic Metabolic Panel (05/01/2024) ???Sodium - 138 mmol/L???Potassium - 3.8 mmol/L???Chloride - 106 mmol/L???Bicarbonate Level - 20 mmol/L???Anion Gap - 12???Glucose Level - 97 mg/dL???BUN - 9 mg/dL???Creatinine-Blood - 0.64 mg/dL???Estimated GFR Creatinine - 100 ML/MIN/1.73 M2???Calcium - 8.7 mg/dL CBC (05/01/2024) ???WBC - 9.9 k/mm3???RBC - 4.58 m/mm3???Hgb - 12.7 Gm/dL???Hct - 39.2 %???MCV - 85.6 femtoliters???MCH - 27.7 pg???MCHC - 32.4 Gm/dL???Platelet Count - 310 k/mm3???RDW-SD - 43.6 femtoliters???MPV - 10.0 femtoliters???Nucleated RBC (Automated) - 0.0 #/100 WBC'S???Abs. NRBC - 0.0 k/mm3 Hemoglobin A1c, (Diagnostic) (04/30/2024) ???Hemoglobin A1C (Monitoring) - 6.2 % Magnesium Level (05/01/2024) ???Magnesium - 2.0 mg/dL Phosphorus Level (05/01/2024) ???Phosphorus - 2.7 mg/dL Troponin T, High Sensitivity (05/01/2024) ???High Sensitivity Troponin (HSTnT) - 680 ng/L You will be contacted within 72 hours with your results. Allergies (NKA means No Known Allergies) penicillin sulfa drugs Problems Active Problems??(2) Anxiety?? Obese class I?? Education Materials Below is the list of Educational Leaflet Providered with your Discharge Instructions. [employer] Ignite Patient Education - Surgery Radial Cath Approach Discharge Instructions?? Web[employer] Ignite Patient Education - Metoprolol?? [employer] Ignite Patient Education - Clopidogrel?? [employer] Ignite Patient Education - Exercise for a Healthier Heart?? [employer] Ignite Patient Education - Exercising After a Heart Attack?? Web[employer] Ignite Patient Education - Cardiac Rehabilitation?? Web[employer] Ignite Patient Education - Living Well After a Heart Attack?? Web[employer] Ignite Patient Education - Recognizing a Heart Attack or Angina?? Web[employer] Ignite Patient Education - Symptoms of a Heart Attack?? Web[employer] Ignite Patient Education - Discharge Instructions for Heart Attack?? Web[employer] Ignite Patient Education - Understanding Coronary Artery Disease (CAD)?? Web[employer] Ignite Patient Education - Understanding Spontaneous Coronary Artery Dissection (SCAD)?? Valuables and Belongings I fully understand and agree that [facility] accepts no responsibility for all my personal property including clothing, toilet articles, radios, jewelry, dentures, hearing aids, rings, money, or any other property that is in my possession or is brought to me after admission. I understand certain valuables may be placed in a hospital safe for a short period of time. I understand that the hospital is not liable for loss or damage due to accident, fire, or other natural occurrence while said property is in the safe. I accept full responsibility for any personal property that I keep with me, and will not hold the hospital responsible in case of loss or disappearance. I acknowledge that i have been encouraged to send valuables and belongings home. ?? Date for Pt to Sign Valuables/Belongings: 04/30/24 12:37:00 ?? Other Discharge Information ? Pulmonary Rehab Status?? Pulmonary Rehab Discharge Status?? Respiratory Rate: 17 br/min ? Cardiac Rehab Assessment?? Cardiac Rehab Inpatient Assessment?? Comments-Education: NSTEMI/SCAD, home activity, cardiac risk factor education and modification Comments-Exercise Activity: Increase as tolerated Comments-Nutrition: Heart Healthy Comments-Lipids: Per MD Patient attending Phase II: Yes Phase II Site of Care: [place] [address] [place] [address] [phone] Common Emergency Awareness Tips IS IT A STROKE? Act FAST and Check for these signs: FACE Does the face look uneven? ARM Does one arm drift down? SPEECH Does their speech sound strange? TIME Call at any sign of stroke ?? Heart Attack Signs Chest discomfort: Most heart attacks involve discomfort in the center of the chest and lasts more than a few minutes, or goes away and comes back. It can feel like uncomfortable pressure, squeezing, fullness or pain. Discomfort in upper body: Symptoms can include pain or discomfort in one or both arms, back, neck, jaw or stomach. Shortness of breath: With or without discomfort. Other signs: Breaking out in a cold sweat, nausea, or lightheaded. Remember, MINUTES DO MATTER. If you experience any of these heart attack warning signs, call to get immediate medical attention! ?? Smoking can increase your chances of developing chronic health problems and can cause harmful effects to other family members in your house. If you smoke, you are strongly encouraged to quit. Please call [facility] [employer] Link at [phone] or [phone]) or log in to [email or web address] for referrals to smoking cessation programs. ?? 428 Suicide & Crisis Lifeline is available 18/12 if you or someone you know needs to find a reason to keep living. By calling 888 you'll be connected to a skilled, trained counselor at a crisis center in your area. INPATIENT DISCHARGE INSTRUCTIONS SIGNATURE PAGE MADELINE PEREZ Location:[facility] Registration Date and Time:04/30/2024 12:25 EST Primary Care Physician: Not on Staff, PCP Attending Physician: [facility] I MADELINE PEREZ, have received the above patient education materials/instructions and have verbalized understanding. If ambulance or transport services are being used I further acknowledge being givena choice of service. ?? If you need to contact me, please call me at this number: . Patient/Resource Teacher Name: Patient/Resource Teacher Signature: Relationship to Patient: Witness Name/Signature: Date: * Cassidy Grider: PERFORM, SIGN, VERIFY Event Display: Patient Education Handout Authored Date: [id number] * Ana Rodriguez RN: PERFORM Event Display: Patient Education Leaflets Authored Date: [id number] Surgery Radial Cath Approach Discharge Instructions ?? 278 Radial Cath Approach Discharge Instructions ?? Activity Take it easy the rest of the day. Limit your activity on the affected side.?? Act as if your arm is broken for 24 hours. No lifting with affected arm for 24 hours. No pushing or pulling with the affected arm. Do not reach or lift with the affected arm. Do not place excessive pressure on the wrist. ?? Precautions Due to intravenous sedation: It is recommended that someone stay with you for the first night after your procedure. Do not drive or operate hazardous machinery for 24 hours. Do not make legal decisions for 24 hours. Avoid alcohol for 24 hours. Unless directed otherwise, keep yourself hydrated. ?? Dressing/Incision Care You may remove the dressing 24 hours after your procedure. Replace with band aid for an additional 24 hours. You may shower and cleanse the site with soap & water then pat dry. Avoid submersion of site in water x 5 days. Cover the with a clean band aid daily until site is healed. If the band aid becomes soiled, replacewith a clean new one. Do not apply any ointments, lotions, gels or powders to the puncture site. ?? When to contact your doctor If any of the following signs of infection occur: Fever greater than 100 degrees F Increased pain Drainage, redness or warmth at puncture site Tingling of the fingers and hand that last longer than 3 days Slight bubble of blood or bleeding from site: apply manual pressure and notify your doctor ?? Emergency situations: Bleeding from the site that will not stop: apply manual pressure and notify your doctor Profuse bleeding streaming from the puncture site: Apply manual pressure and notify your doctor immediately If your hand becomes bluish, cold to the touch, or painful, notify your doctor immediately or go toEmergency Department. For these emergent situations: If unable to contact your physician, call 911. ?? * Jennifer LEWIS, Ana Nelson: PERFORM Event Display: Patient Education Leaflets Authored Date: [id number] Metoprolol ?? [id number] Metoprolol Brand Name(s): Kapspargo Sprinkle??, Lopressor??, Toprol??, Toprol?? XL, Dutoprol?? (as a combination product containing Metoprolol, Hydrochlorothiazide), Lopressidone?? (as a combination product containing Chlorthalidone, Metoprolol), Lopressor?? HCT (as a combination product containing Metoprolol, Hydrochlorothiazide); also available generically ?? WHY is this medicine prescribed? Metoprolol is used alone or in combination with other medications to treat high blood pressure. It also is used to treat chronic (long-term) angina (chest pain). Metoprolol is also used to improve survival after a heart attack. Metoprolol also is used in combination with other medications to treat heart failure. Metoprolol is in a class of medications called beta blockers. It works by relaxing blood vessels and slowing heart rate to improve blood flow and decrease blood pressure. High blood pressure is a common condition and when not treated, can cause damage to the brain, heart, blood vessels, kidneys and other parts of the body. Damage to these organs may cause heart disease, a heart attack, heart failure, stroke, kidney failure, loss of vision, and other problems. In addition to taking medication, making lifestyle changes will also help to control your blood pressure. These changes include eating a diet that is low in fat and salt, maintaining a healthy weight, exercising at least 30 minutes most days, not smoking, and using alcohol in moderation. HOW should this medicine be used? Metoprolol comes as a tablet, an extended-release (long-acting) tablet, and an extended-release capsule to take by mouth. The regular tablet is usually taken once or twice a day with meals or immediately after meals. The extended-release tablet and extended-release capsule are usually taken once a day. To help you remember to take metoprolol, take it around the same time(s) every day. Follow the directions on your prescription label carefully, and ask your doctor or pharmacist to explain any part you do not understand. Take metoprolol exactly as directed. Do not take more or less of it or take it more often than prescribed by your doctor. The extended-release tablet may be split. Swallow the whole or half extended- release tablets whole;do not chew or crush them. Swallow the extended-release capsules whole; do not split, chew, or crush them. If you are unable to swallow the capsules, you may open the capsule and sprinkle the contents over a spoonful of soft food, such as applesauce, pudding, or yogurt and swallow the mixture immediately. Do not swallow the mixture more than 60 minutes after you sprinkle the contents of the capsule. Your doctor may start you on a low dose of metoprolol and gradually increase your dose. Metoprolol helps to control your condition but will not cure it. Continue to take metoprolol even if you feel well. Do not stop taking metoprolol without talking to your doctor. If you suddenly stop taking metoprolol you may experience serious heart problems such as severe chest pain, a heart attack, or an irregular heartbeat. Your doctor will probably want to decrease your dose gradually over 1 to 2 weeks and will monitor you closely. Are there OTHER USES for this medicine? Metoprolol is also used sometimes to treat certain types of irregular heartbeats. Talk to your doctor about the possible risks of using this medication for your condition. This medication may be prescribed for other uses; ask your doctor or pharmacist for more information. What SPECIAL PRECAUTIONS should I follow? Before taking metoprolol, ??? tell your doctor and pharmacist if you are allergic to metoprolol, any other medications, or any of the ingredients in metoprolol tablets, extended-release tablets, or extended-release capsules. Ask your pharmacist for a list of the ingredients. ??? tell your doctor and pharmacist what prescription and nonprescription medications, vitamins, nutritional supplements, and herbal products you aretaking or plan to take. Your doctor may need to change the doses of your medications or monitor youcarefully for side effects. ??? tell your doctor if you have a slow or irregular heartbeat or heartfailure. Your doctor may tell you not to take metoprolol. ??? tell your doctor if you have or have e axel had asthma or other lung diseases; problems with blood circulation; pheochromocytoma (a tumor that develops on a gland near the kidneys and may cause high blood pressure and fast heartbeat); heart or liver disease;diabetes; or hyperthyroidism (an overactive thyroid gland). Also tell your doctorif you have ever had a serious allergic reaction to a food or any other substance. ??? tell your doctor if you are , plan to become , or are . If you become while taking metoprolol, call your doctor. ??? if you are having surgery, including dental surgery, tellthe doctor or dentist that you are taking metoprolol. ??? you should know that metoprolol may make you drowsy. Do not drive a car or operate machinery until you know how this medication affects you. ??? do not drink any alcoholic drinks or take any prescription or nonprescription medications that contain alcohol if you are taking metoprolol extended-release capsules. Ask your doctor or pharmacistif you do not know if a medication that you plan to take contains alcohol. ??? you should know thatmetoprolol may increase the risk of hypoglycemia (low blood sugar) and prevent the warning signs and symptoms that would tell you that your blood sugar is low. Let your doctor know if you are unable to eat or drink normally or are vomiting while you are taking metoprolol. You should know the symptoms of low blood sugar and what to do if you have these symptoms. ??? you should know that if you have allergic reactions to different substances, your reactions may be worse while you are using metoprolol, and your allergic reactions may not respond to the usual doses of injectable epinephrine. What SPECIAL DIETARY instructions should I follow? IUnless your doctor tells you otherwise, continue your normal diet. What should I do IF I FORGET to take a dose? Skip the missed dose and continue your regular dosing schedule. Do not take a double dose to make up for a missed one. What SIDE EFFECTS can this medicine cause? Metoprolol may cause side effects. Tell your doctor if any of these symptoms are severe or do not go away: ??? dizziness or lightheadedness ??? tiredness ??? depression ??? diarrhea ??? nausea ??? dry mouth??? stomach pain ??? vomiting ??? gas or bloating ??? heartburn ??? constipation ??? rash or itching ??? cold hands and feet ??? runny nose Some side effects can be serious. The following symptoms are uncommon, but if you experience any ofthem, call your doctor immediately: ??? shortness of breath or difficulty breathing ??? wheezing ??? swelling of the hands, feet, ankles, or lower legs ??? weight gain ??? fainting ??? rapid, pounding, or irregular heartbeat Metoprolol may cause other side effects. Call your doctor if you have any unusual problems while taking this medication. If you experience a serious side effect, you or your doctor may send a report to the Food and Drug Administration's (FDA) MedWatch Adverse Event Reporting program online (https://www.fda.gov/Safety/MedWatch) or by phone ( ). What should I know about STORAGE and DISPOSAL of this medication? Keep this medication in the container it came in, tightly closed, and out of reach of children. Store it at room temperature and away from excess heat and moisture (not in the bathroom). It is important to keep all medication out of sight and reach of children as many containers (such as weekly pill minders and those for eye drops, creams, patches, and inhalers) are not child-resistant and young children can open them easily. To protect young children from poisoning, always lock safety caps and immediately place the medication in a safe location ??? one that is up and away and out of their sight and reach. https://www.[employer].org Unneeded medications should be disposed of in special ways to ensure that pets, children, and otherpeople cannot consume them. However, you should not flush this medication down the toilet. Instead,the best way to dispose of your medication is through a medicine take-back program. Talk to your pharmacist or contact your local garbage/recycling department to learn about take-back programs in your community. See the FDA's Safe Disposal of Medicines website (https://goo.gl/c4Rm4p) for more information if you do not have access to a take-back program. What should I do in case of OVERDOSE? In case of overdose, call the poison control helpline at . Information is also available online at https://www.poisonhelp.org/help. If the victim has collapsed, had a seizure, has trouble breathing, or can't be awakened, immediately call emergency services at 911. Symptoms of overdose may include the following: ??? nausea ??? vomiting ??? decreased consciousness or loss of consciousness (coma) ??? irregular, fast, or slow heartbeat ??? chest pain ??? dizziness ??? fatigue or weakness ??? fainting ??? difficulty breathing ??? cough or wheezing ??? swelling of the hands, feet, ankles, or lower legs What OTHER INFORMATION should I know? Keep all appointments with your doctor. Your blood pressure should be checked regularly to determine your response to metoprolol. Your doctor may ask you to check your pulse (heart rate). Ask your pharmacist or doctor to teach you how to take your pulse. If your pulse is faster or slower than it should be, call your doctor. Do not let anyone else take your medication. Ask your pharmacist any questions you have about refilling your prescription. It is important for you to keep a written list of all of the prescription and nonprescription (asqb-[id number]-[id number]) medicines you are taking, as well as any products such as vitamins, minerals, or otherdietary supplements. You should bring this list with you each time you visit a doctor or if you areadmitted to a hospital. It is also important information to carry with you in case of emergencies. This report on medications is for your information only, and is not considered individual patient advice. Because of the changing nature of drug information, please consult your physician or pharmacist about specific clinical use. The [employer] represents that the information provided hereunder was formulated with a reasonable standard of care, and in conformity with professional standards in the field. The [employer] makes no representations or warranties, express or implied, including, but not limited to, any implied warranty of merchantability and/or fitness for a particular purpose, with respect to such information and specifically disclaims all such warranties. Users are advised that decisions regarding drug therapy are complex medical decisions requiring the independent, informed decision of an appropriate health care management assistant, and the information is provided for informational purposes only. The entire monograph for a drug should be reviewed for a thorough understanding of the drug's actions, uses and side effects. The [employer] does not endorse or recommend the use of any drug.The information is not a substitute for medical care. AHFS?? Patient Medication Information???. ?? Copyright, 2023. The [employer]??, [address], [address], [place], [place]. All Rights Reserved. Duplication for commercial use must be authorized by [facility]. Selected Revisions: February 09, 2023. AHFS?? Patient Medication Information???. ?? Copyright, 2023 ?? * Jennifer LEWIS, Ana Nelson: PERFORM Event Display: Patient Education Leaflets Authored Date: [id number] Clopidogrel ?? [id number] Clopidogrel Brand Name(s): Plavix??; also available generically ?? IMPORTANT WARNING: Clopidogrel must be changed to an active form in your body so that it can treat your condition. Some people do not change clopidogrel to its active form in the body as well as other people. Because the medication does not work as well in these people, they may be at a higher risk of having a heart attack or stroke. There are tests available to identify people who have trouble changing clopidogrelto an active form. Talk to your doctor about whether you should be tested. If you are found to havedifficulty converting clopidogrel to its active form, your doctor may change your dose of clopidogrel or tell you not to take clopidogrel. Your doctor or pharmacist will give you the [employer] patient information sheet (Medication Guide) when you begin treatment with clopidogrel and each time you refill your prescription. Read the information carefully and ask your doctor or pharmacist if you have any questions. You can also visit the Food and Drug Administration (FDA) website (https://www.fda.gov/Drugs/DrugSafety/poz330642.htm) or the [employer] website to obtain the Medication Guide. Talk to your doctor about the risks of taking clopidogrel. WHY is this medicine prescribed? Clopidogrel is used alone or with aspirin to prevent serious or life-threatening problems with the heart and blood vessels in people who have had a stroke, heart attack, or severe chest pain. This includes people who have percutaneous coronary intervention (PCI; angioplasty; a type of heart surgery) that may involve inserting coronary stents (metal tubes surgically placed in clogged blood vesselsto improve blood flow) or who have coronary artery bypass grafting (CABG; a type of heart surgery).Clopidogrel is also used to prevent serious or life-threatening problems with the heart and blood vessels in people who have peripheral arterial disease (poor circulation in the blood vessels that supply blood to the legs). Clopidogrel is in a class of medications called antiplatelet medications. It works by preventing platelets (a type of blood cell) from collecting and forming clots that may cause a heart attack or stroke. HOW should this medicine be used? Clopidogrel comes as a tablet to take by mouth. It is usually taken once a day with or without food. Take clopidogrel at around the same time every day. Follow the directions on your prescription label carefully, and ask your doctor or pharmacist to explain any part you do not understand. Take clopidogrel exactly as directed. Do not take more or less of it or take it more often than prescribed byyour doctor. Clopidogrel will help prevent serious problems with your heart and blood vessels only as long as you take the medication. Continue to take clopidogrel even if you feel well. Do not stop taking clopidogrel without talking to your doctor. If you stop taking clopidogrel, there is a higher risk that you may have a heart attack or stroke. If you have a stent, there is also a higher risk that you coulddevelop a blood clot in the stent if you stop taking clopidogrel too soon. Are there OTHER USES for this medicine? Clopidogrel is also sometimes used to prevent blood clots in people with atrial fibrillation (a condition in which the heart beats irregularly). Talk to your doctor about the possible risks of using this medication for your condition. This medication may be prescribed for other uses; ask your doctor or pharmacist for more information. What SPECIAL PRECAUTIONS should I follow? Before taking clopidogrel, ??? tell your doctor and pharmacist if you are allergic to clopidogrel, prasugrel (Effient), ticlopidine, any other medications, or any ingredient in clopidogrel tablets. Ask your pharmacist or checkthe Medication Guide for a list of the ingredients. ??? tell your doctor and pharmacist what other prescription and nonprescription medications, vitamins, nutritional supplements, and herbal productsyou are taking or plan to take while taking clopidogrel. Your doctor may need to change the doses of your medications or monitor you carefully for side effects. . ??? The following nonprescription products may interact with clopidogrel: omeprazole (Prilosec, Prilosec OTC, Zegerid); esomeprazole (Nex ium); aspirin and other nonsteroidal anti-inflammatory drugs (NSAIDs) such as ibuprofen (Advil, Motrin) and naproxen (Aleve, Naprosyn). Be sure to let your doctor and pharmacist know that you are taking these medications before you start taking clopidogrel. Do not start any of these medications while taking clopidogrel without discussing with your healthcare provider. ??? tell your doctor if you have bleeding ulcers (sores in the lining of the stomach or small intestine that are bleeding), bleeding in the brain, or any other condition that causes severe bleeding. Your doctor may tell you thatyou should not take clopidogrel. ??? tell your doctor if you have recently been injured and if you h ave or have ever had liver or kidney disease or any condition that may cause bleeding, including stomach problems such as ulcers. ??? tell your doctor if you are , plan to become , orare breast-feeding. If you become while taking clopidogrel, call your doctor. ??? if you are having surgery, including dental surgery, tell the doctor or dentist that you are taking clopidogrel. Your doctor may tell you to stop taking clopidogrel at least 5 days prior to your surgery to avoid excessive bleeding during surgery. Your doctor will tell you when to start taking clopidogrel again after your surgery. ??? you should know that you may bleed more easily or for a longer time than usual while you are taking clopidogrel. Be careful not to cut or hurt yourself while you are takingclopidogrel. What SPECIAL DIETARY instructions should I follow? Unless your doctor tells you otherwise, continue your normal diet. What should I do IF I FORGET to take a dose? Take the missed dose as soon as you remember it. However, if it is almost time for the next dose, skip the missed dose and continue your regular dosing schedule. Do not take a double dose to make up for a missed one. What SIDE EFFECTS can this medicine cause? Clopidogrel may cause side effects. Tell your doctor if any of these symptoms are severe or do not go away: ??? excessive tiredness ??? headache ??? dizziness ??? nausea ??? vomiting ??? stomach pain ??? diarrhea ??? nosebleed Some side effects can be serious. If you experience any of the following symptoms, call your doctorimmediately: ??? hives ??? rash ??? itching ??? difficulty breathing or swallowing ??? swelling of the face, throat, tongue, lips, eyes, hands, feet, ankles, or lower legs ??? hoarseness ??? black and tarry stools ??? red blood in stools ??? bloody vomit ??? vomit that looks like coffee grounds ??? unusual bleeding or bruising ??? pink or brown urine ??? slow or difficult speech ??? weakness or numbness of anarm or a leg ??? changes in vision ??? fever ??? shortness of breath ??? fast heartbeat ??? pale skin ??? purple patches or bleeding under the skin ??? confusion ??? yellowing of the skin or eyes ???seizures Clopidogrel may cause other side effects. Call your doctor if you have any unusual problems while taking this medication. If you experience a serious side effect, you or your doctor may send a report to the Food and Drug Administration's (FDA) MedWatch Adverse Event Reporting program online (https://www.fda.gov/Safety/MedWatch) or by phone ( ). What should I know about STORAGE and DISPOSAL of this medication? Keep this medication in the container it came in, tightly closed, and out of reach of children. Store it at room temperature and away from excess heat and moisture (not in the bathroom). Unneeded medications should be disposed of in special ways to ensure that pets, children, and otherpeople cannot consume them. However, you should not flush this medication down the toilet. Instead,the best way to dispose of your medication is through a medicine take-back program. Talk to your pharmacist or contact your local garbage/recycling department to learn about take-back programs in your community. See the FDA's Safe Disposal of Medicines website (https://goo.gl/c4Rm4p) for more information if you do not have access to a take-back program. It is important to keep all medication out of sight and reach of children as many containers (such as weekly pill minders and those for eye drops, creams, patches, and inhalers) are not child-resistant and young children can open them easily. To protect young children from poisoning, always lock safety caps and immediately place the medication in a safe location ??? one that is up and away and out of their sight and reach. https://www.upandaway.org What should I do in case of OVERDOSE? In case of overdose, call the poison control helpline at . Information is also available online at https://www.poisonhelp.org/help. If the victim has collapsed, had a seizure, has trouble breathing, or can't be awakened, immediately call emergency services at 909. Symptoms of overdose may include the following: ??? unusual bruising or bleeding What OTHER INFORMATION should I know? Keep all appointments with your doctor. Do not let anyone else take your medication. Ask your pharmacist any questions you have about refilling your prescription. It is important for you to keep a written list of all of the prescription and nonprescription (fogj-xpg-wrvvozy) medicines you are taking, as well as any products such as vitamins, minerals, or otherdietary supplements. You should bring this list with you each time you visit a doctor or if you areadmitted to a hospital. It is also important information to carry with you in case of emergencies. This report on medications is for your information only, and is not considered individual patient advice. Because of the changing nature of drug information, please consult your physician or pharmacist about specific clinical use. The [employer] represents that the information provided hereunder was formulated with a reasonable standard of care, and in conformity with professional standards in the field. The [employer] makes no representations or warranties, express or implied, including, but not limited to, any implied warranty of merchantability and/or fitness for a particular purpose, with respect to such information and specifically disclaims all such warranties. Users are advised that decisions regarding drug therapy are complex medical decisions requiring the independent, informed decision of an appropriate health care management assistant, and the information is provided for informational purposes only. The entire monograph for a drug should be reviewed for a thorough understanding of the drug's actions, uses and side effects. The [employer] does not endorse or recommend the use of any drug.The information is not a substitute for medical care. AHFS?? Patient Medication Information???. ?? Copyright, 2023. The [employer]??, [address], [address], [place], [place]. All Rights Reserved. Duplication for commercial use must be authorized by [facility]. Selected Revisions: November 15, 2023. AHFS?? Patient Medication Information???. ?? Copyright, 2023 ?? * Event Display: Hemodynamic Procedure Report Authored Date: Admission evaluation note * Aryan Rice MD: MODIFY, PERFORM Event Display: Admission Note Authored Date: Patient: ??MADELINE PEREZ ? Age:??63 Years?Sex:??Female?:??1960?? Chief Complaint/Reason for Consultation NSTEMI History of Present Illness Madeline??is a 63-year-old??female with no significant past medical history??[facility] and elevated troponins concerning for NSTEMI,??pending??Cardiac catheterization. ?? Patient states that??she developed??chest pain??yesterday that she described as??a??pressure-like pain??in a band distribution??on right and left side. ??She initially thought it was heartburn??and took??Tums, Abby-Putnam, and Tylenol,??which somewhat alleviated the pain, however??at 11 PM??when??patient was resting the pain got worse and she went to the ED.?? Patient denies any palpitations. ??No fever, sore throat or any viral symptoms. ??No nausea/vomiting/abdominal pain or diarrhea.?? No??exertional dyspnea though she states that she had been very active since returning from vacation??onSunday and Sunday this week. ?? At [place] [facility] patient was afebrile,??did have??elevated BP to??182/93.?? ECG??showed normal sinus rhythm??with no??ischemic changes.?? Labs were notable??for??troponin I high-sensitivity??elevated to??7232.9??and patient was subsequently started on heparin drip,??and was??given??aspirin 162 Mg, meto prolol, atorvastatin, and??Nitropaste. ??Troponins were downtrending to 7003.3.??Record review, other labs from [facility]??as follows: ?? WBC 9.4, Hgb 13.5, HCT 40.0, platelets 324 NA 141, K3.7,??CL 107,??bicarb 24, AG 14,??BUN 9,??creatinine 0.73, calcium 9.0, magnesium 2.0 AST/ALT??93/34, alk phos 88 Triglycerides 57, total cholesterol 140, LDL 87, HDL 42,??TSH 0.84 Troponin I HS: 7232.9 -> 7003.3 ?? Social history: No smoking, alcohol use, or other drug use. Family history:?- Father,??MGF, PGF: Heart disease ??- Mom,??brother,??father: Type II DM Review of Systems Constitutional:??No fever, chills, weight loss/gain HEENT:??+headache, No vision changes, rhinorrhea, sore throat, or neck pain. Respiratory:??No cough, shortness of breath, or wheezing. Cardiovascular:??per HPI Gastrointestinal:??No abdominal pain, nausea, vomiting, diarrhea, constipation, or blood in stool. Genitourinary:??No dysuria or hematuria Musculoskeletal:??No arthralgias or myalgias. Skin:??No rashes Neurological:??+headache, no dizziness, or numbness Endocrine:??No polyuria, polydipsia. Objective Measurements?? Height: 152 cm (04/30/24) Weight: 79.6 kg (04/30/24) Dry Weight: 79.6 kg (04/30/24) Body Mass Index:??34.45 kg/m2??Critical (04/30/24) ? Vital Signs?? Temperature: 97.8 DegF (04/30/24 12:30:00) Temperature Route: Tympanic (04/30/24 12:30:00) Pulse Rate: 66 bpm (04/30/24 12:30:00) Respiratory Rate: 20 br/min (04/30/24 12:30:00) Systolic Blood Pressure:??144 mm Hg??High (04/30/24 12:30:00) Diastolic Blood Pressure: 81 mm Hg (04/30/24 12:30:00) Blood pressure sites: Arm, right (04/30/24 12:30:00) Mean Arterial Pressure: 102 mm Hg (04/30/24 12:30:00) Pulse Pressure: 63 mm Hg (04/30/24 12:30:00) Oxygen Saturation: 98 % (04/30/24 12:30:00) Mode of Delivery (Oxygen): Room air (04/30/24 12:30:00) Early Warning Score: 2 (04/30/24 12:34:45) ? Physical Exam General: Alert, no acute distress. Eyes:??Pupils are equal, round, and reactive to light. EOMI Ear, Nose, and Throat: Mucous membranes moist Neck:??Supple, CV: RRR, S1 S2 present. No murmurs, gallops, rubs appreciated. No JVD. No edema. Respiratory: All [place] clear to auscultation bilaterally. No wheezes, rales, rhonchi?? Abdominal: Soft, nontender. No rebound tenderness. Normal bowel sounds. : No suprapubic tenderness. Extremities: Full passive ROM Neuro: CN II-XII grossly intact. Moving all extremities normally. Sensation intact bilaterally. Skin: No lesions, wounds, rashes.?? Musculoskeletal:??No joint edema or erythema. Normal range of motion. 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 ?? NSTEMI (non-ST elevated myocardial infarction) (I21.4) ?Caused by??Spontaneous dissection of coronary artery (I25.42) ?? Patient describes angina??pain???ECG with no ischemic??changes, however??significantly elevated Troponins???no??role for an x-ray??administered at OSH, however patient was??given aspirin load, started on metoprolol and atorvastatin, and heparin drip was initiated and transferred here for further cardiac cath. Cath performed on 04/30:??was consistent with spontaneous coronary artery dissection of distal OM, appreciate cardiology recommendations. DC'd ?? Plan: -DC??heparin drip -Will trend troponin until downtrending?? -continue with Aspirin 81 mg daily and start Clopidogrel 75mg daily - per cardiology will need DAPTfor 6 months -Continue Metoprolol 25mg BID -Stop Atorvastatin (No CAD, no HLD, ASCVD risk is 4.2%) -Check A1c given family history -Stat ECG for any??new or worsening chest pain?? -Echocardiogram -Cardiology to arrange??outpatient workup of carotid/renal artery dysplasia? Headache (R51.9):? - PRN acetaminophen ?? VTE Prophylaxis:??Lovenox ?VTE Prophylaxis Assessment:??VTE Prophylaxis Ordered ?? Code Status:??Full (confirmed) ?Order Code Status:??Code Status Ordered ?? Ongoing Medical Necessity:??pending ECHO, obs s/p cardiac cath ?? Aryan Rice MD MedPeds PGY-3 [facility]??& Will Villalta p.[phone], Available on [employer]. ?? Patient seen and plan discussed with attending, ??Alec Histories Allergies Allergies ?(Active and Proposed Allergies Only) penicillin? (Severity: Unknown severity, Onset: Unknown) sulfa drugs? (Severity: Unknown severity, Onset: Unknown) ? Past Medical History/Problem List Active Problems(2) Anxiety Obese class I ? Past Surgical History Transcervical uterine fibroid(s) ablation with ultrasound guidance, radiofrequency ? Social History Alcohol Details:??Use: Never. 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 Exercise Details:??Regular exercise: No. Home/Environment Details:??Living situation: Home/Independent. ??Lives with: Spouse. Nutrition/Health Details:??Diet: Regular. ??Other: Nutri-system. ??Caffeine intake amount: none. Sexual Details:??Sexually involved in last 6 months: Yes. ??Gender identity: Identifies as female. ??Self described orientation: Straight or heterosexual. ??Preferred pronoun: She/her. Substance Abuse Details:??Use: Never. Tobacco Details:??Use: Never (less than 100 in lifetime). Electronic Cigarette/Vaping Details:??Electronic Cigarette Use: Never. ? Family History Father: Diabetes mellitus; Heart disease Sister: Thyroid Brother: Diabetes mellitus Mat. Grandmother: Brain Pat. Grandmother: Coronary artery disease; Diabetes mellitus Pat. Grandfather: Coronary artery disease; Diabetes mellitus Aunt: Brain ? Medications Home Medications Acetaminophen (acetaminophen 500 mg oral tablet)?2?tab(s)?1,000?Milligram?By Mouth?Every 6 hours?as needed?Pain , Mild Ibuprofen (Advil 200 mg oral tablet)?2?tab(s)?400?Milligram?By Mouth?Every 6 hours?as needed?for pain ? Inpatient Medications Medications (15) Active SCHEDULED: (8) Aspirin 81 mg Chew Tablet (Aspirin Chew Tablet) ??81 mg, By Mouth, Daily Aspirin 81 mg EC Tablet (aspirin 81 mg oral delayed release tablet) ??81 mg, By Mouth, Daily Clopidogrel 75 mg Tablet (Plavix 75 mg oral tablet) ??300 mg, By Mouth, Once Clopidogrel 75 mg Tablet (Plavix 75 mg oral tablet) ??75 mg, By Mouth, Daily Clopidogrel 75 mg Tablet (Plavix 75 mg oral tablet) ??75 mg, By Mouth, Daily Enoxaparin 40 mg Inj (Enoxaparin Inj) ??40 mg 0.4 mL, Subcutaneous Injection, Daily Metoprolol 25mg Tablet (metoprolol 25 mg oral tablet) ??25 mg, By Mouth, 2 times a day NaCl 0.9% Flush 3ml (NaCL 0.9% Flush) ??3 mL, IV Push, Every 8 hours CONTINUOUS: (1) Sodium Chloride 0.9% 1000 mL [1.5 mL/kg/hr] (Sodium Chloride 0.9% Normalized 1000 mL [1.5 mL/kg/hr]) ??1,000 mL, IV Infusion, 119.4 mL/hr PRN: (6) Acetaminophen 325 mg Tablet (Acetaminophen Tablet) ??650 mg, By Mouth, Every 4 hours Docusate Sodium 100 mg Capsule (Docusate Sodium Capsule) ??100 mg 1 capsule, By Mouth, 2 times a day Melatonin 3 mg Tablet (Melatonin Tablet) ??3 mg, By Mouth, Daily at bedtime NaCl 0.9% Flush 3ml (NaCL 0.9% Flush) ??3 mL, IV Push, Every 8 hours Polyethylene Glycol 17 Gm Powder (MiraLax Powder) ??17 Gm 1 pack/packet, By Mouth, Daily Senna Tablet ??8.6 mg 1 tablet, By Mouth, 2 times a day ? Results Recent Labs No labs resulted between 04/29/2024 00:00 and 04/30/2024 15:02? US Heart * Event Display: Echocardiogram - Complete Authored Date: Transthoracic Echocardiography Report (TTE) Patient Demographics Patient Name MADELINE PEREZ Date of Study 05/01/2024 Corporate Gender Female Facility Race Unknown .[id number] Ethnicity or Date of 1960 Height: 59.84 inches Age 63 year(s) Weight: 176.37 pounds Accession Number [id number] BSA: 1.77 m2 Room Number [id number] BMI: 34.63 kg/m2 Referring Krystal Campos MD Interpreting Lor Reyes Physician Physician Teacher Industrial Arts Ariel Stein LILIA Indications NSTEMI. Clinical History Chest pain Abnormal EKG Elevated troponin. Study Data Type of Study TTE procedure:Echo Complete-(Doppler, Colorflow) with Contrast. Procedure Information:Definity was administered by Tax Adjuster . Study Date05/01/2024 Start Time: 09:39 AM Study [place] [facility] [place] Study Status: Echo lab Patient Status: Routine Technical Quality: Adequate due to body habitus. Blood Pressure:131/69 mmHg EKG: Within normal limits HR: 67 bpm Contrast Medium: Definity. Amount - 2 ml 2D Measurements LV Diastolic Dimension: 4.64 cm LV Systolic Dimension: 2.4 cm LV Septum Diastolic: 1 cm LV PW Diastolic: 1 cm AO Root Dimension: 3 cm LA Dimension: 3.2 cm LA ESV (BP):32.13 ml LVOT Stroke Volume: 81.33 ml LA ESV Index: 18 ml/m2 Stroke Volume Index45.95 ml/m2 LVOT: 2 cm Cardiac Index:3.08 l/min/m2 Ascending Aorta:3.1 cm Doppler Measurements AV Peak Velocity: 146 cm/s MV Peak E-Wave: 56.2 cm/s AV Peak Gradient: 8.53 mmHg MV Peak A-Wave: 84.6 cm/s MV E/A Ratio: 0.66 LVOT Peak Velocity: 124 cm/s MV P1/2t: 103 msec LVOT VTI25.9 cm MV Deceleration Time: 350 msec MV Area (PHT): 2.14 cm2 E' Septal Velocity: 6.42 cm/s PV Peak Velocity: 94.1 cm/s E' Lateral Velocity: 7.18 cm/s PV Peak Gradient: 3.54 mmHg E/Med E':8.120226 E/Lat E':7.630324 Cardiac Anatomy Left Ventricle/Interventricular Septum The left ventricular size is normal. Left ventricular wall thickness is normal. The LV systolic function is normal . The left ventricular ejection fraction is 55-60 %. The mid to distal inferolateral, anterolateral wall is hypokinetic . There is no doppler evidence of increased filling pressures. Left Atrium/Interatrial Septum The left atrium is normal in size. Aortic Valve The aortic valve appears mildly thickened. There is no aortic stenosis. There is trace aortic regurgitation. Mitral Valve There is mild mitral annular calcification. The mitral valve opening is normal. There is trivial mitral regurgitation. Aorta The ascending aorta and aortic root are normal in size. Right Ventricle The right ventricle is normal in size and function. Right Atrium The right atrium is normal in size. Pulmonic Valve The pulmonic valve appears normal. Tricuspid Valve The tricuspid valve appears normal . There is trace tricuspid valve regurgitation. Pumonary Artery An accurate pulmonary artery pressure could not be obtained. Venous Structures The inferior vena cava appears normal. Pericardium/Extracardiac There is no significant pericardial effusion. Summary The left ventricular size is normal. Left ventricular wall thickness is normal. The LV systolic function is normal . The left ventricular ejection fraction is 55-60 %. The mid to distal inferolateral, anterolateral wall is hypokinetic . There is no doppler evidence of increased filling pressures. The aortic valve appears mildly thickened. There is no aortic stenosis. There is trace aortic regurgitation. There is mild mitral annular calcification. The mitral valve opening is normal. There is trivial mitral regurgitation. The right ventricle is normal in size and function. Comparison No prior study available for comparison. Signature * Event Display: Echocardiogram - Complete Authored Date: Cardiology * Event Display: Cardiac Rhythm Strips Authored Date: * Event Display: Cardiac Rhythm Strips Authored Date: * Event Display: Cardiac Rhythm Strips Authored Date: Hospital Progress note * Rhianna Santo RN: PERFORM, SIGN, VERIFY Event Display: Progress Note Hospital Authored Date: Patient: MADELINE PEREZ Age: 63 years Sex: Female : 1960 Associated Diagnoses: None Author: Rhianna Santo RN Findings Problem Related to Alteration in Cardiac Function (new) : Alteration in Cardiac Function/new 05/01/2024 4:00 EST Alteration in Cardiac Status Related to Cardiac Procedure Goals & Outcomes, Cardiac Status Pt will resume/maintain adequate cardiac output, Pt will resume/maintain adequate hemodynamic status, Pt will resume/maintain adequate respiratory function, Pt will resume/maintain intact neuro function, Pt will maintain adequate GI/ function appropriate for pt, Pt will maintain adequate nutrition status, Pt/caregiver will state understanding of diagnosis Cardiac Interventions Implemented Assess/monitor cardiac status, Assess/monitor neuro status, Assess/monitor respiratory status, Document & Monitor O2 Sats; Administer O2 as ordered, Ensure adequate caloric intake, Monitor & document daily weight BH Goals/Interventions, Cardiac Yes Cardiac, Problem Start 04/30/2024 19:00 Reviewed Plan with, Cardiac Status Patient Patient Progression, Cardiac Status Patient progressing according to plan . Nursing Data Cardiac Data. : Cardiac Data. 04/30/2024 21:00 EST Cardiovascular Symptoms Chest pressure Cardiac Rhythm Normal sinus rhythm bedspread folder Yes Cardiovascular WNL except . Vital Signs : VITAL SIGNS SECTION 05/01/2024 1:24 EST Temperature 98.1 DegF Temperature Route Temporal Pulse Rate 63 bpm Respiratory Rate 18 br/min Systolic Blood Pressure 131 mm Hg Diastolic Blood Pressure 69 mm Hg Blood pressure sites Arm, left Mean Arterial Pressure 90 mm Hg Pulse Pressure 62 mm Hg Oxygen Saturation 96 % Mode of Delivery (Oxygen) Room air . Evaluation Patient is A&Ox4. On tele in SR. Complained of some chest pressure that resolved. R radial sitefrom cath remains clean, dry, intact. Voiding independently in the bathroom. Slept between cares. Safety maintained. . * Jenny Melgar RN: PERFORM, SIGN, VERIFY, SIGN, MODIFY, SIGN, MODIFY, SIGN, MODIFY Event Display: Progress Note Hospital Authored Date: Patient: MADELINE PEREZ Age: 63 years Sex: Female : 1960 Associated Diagnoses: None Author: Jenny Melgar RN [place] from , patient admitted for CP and possible cardia cath, patient a/ox4, SR on monitor, patientstates CP is 1/10, denies sob. patient ambulates independently. heparin gtt infusing at 12 units/hr. skin noted to be intact, please see cis for full assessment. safety maintained. 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 heparin gtt discontinued and patient started on plavix. * Jenny Melgar RN: PERFORM Event Display: Progress Note Hospital Authored Date: Critical lab: Critical troponin [address] RN Dr[address] Rice made aware. patient is asymptomatic. no new orders a this time. * Jenny Melgar RN: PERFORM Event Display: Progress Note Hospital Authored Date: Critical lab: Critical troponin [address] RN Dr[address] Rice made aware. patient is asymptomatic. Patient Care team information Care Team Personnel Name: Not on Staff, PCP Position: [facility] Physician (General Medicine) Member Role: PCP Name: Jenny Melgar RN Position: S RN Member Role: Primary Care Nurse Name: Bushra Díaz RN Position: S RN Member Role: Primary Care Nurse Care Team Related Persons Name: MARYLU PRADHAN Name: MERRICK PEREZ Insurance Providers Guarantor name: MADELINE PEREZ [facility] Plan Information #: 2 Payer: OUT OF STATE PLANS Member Number: [id number] Policy Number: NA Group Number: 111 Health Plan Information #: 1 Payer: [employer] Member Number: [id number] Policy Number: NA Group Number: [id number]
== END 2024-04-30 20:29 | disposition short-term general hospital (02) | DRG 190 ==
LOC: HO.ED 04-30 01:14 → HO.EDOVER 04-30 03:15
PROVIDERS: Admitting Provider Internal Medicine; Emergency Provider Internal Medicine; Visit Provider Internal Medicine
DX: I21.4 Non-ST elevation (NSTEMI) myocardial infarction (principal)
CPT/HCPCS: 36415; 71046; 80048; 80053; 80061; 83735; 84443; 84484; 85025; 85610; 85730; 93005; 99285; J1644

== ENCOUNTER → 2024-04-29 23:28 | Outpatient (BNV) | payer BC, SELFPAY | PROVIDERS: Admitting Provider Internal Medicine; Emergency Provider Internal Medicine; Visit Provider Internal Medicine Cardiovascular Disease | DX: I21.4 Non-ST elevation (NSTEMI) myocardial infarction (principal) | CPT/HCPCS: 93010 ==

== ENCOUNTER → 2024-04-30 02:59 | Outpatient (BNV) | payer BC, SELFPAY | PROVIDERS: Admitting Provider Internal Medicine; Emergency Provider Internal Medicine; Visit Provider Internal Medicine Cardiovascular Disease | DX: I21.4 Non-ST elevation (NSTEMI) myocardial infarction (principal) | CPT/HCPCS: 93010; 99223 ==

== ENCOUNTER → 2024-04-30 02:59 | Outpatient (BNV) | payer BC, SELFPAY | PROVIDERS: Admitting Provider Internal Medicine; Emergency Provider Internal Medicine; Visit Provider Internal Medicine | DX: I21.4 Non-ST elevation (NSTEMI) myocardial infarction (principal) | CPT/HCPCS: 99236; 99499 ==

== ENCOUNTER 2024-05-16 13:28 | Outpatient (AMB) | payer BC, SELFPAY ==
[2024-05-16 13:41] VITALS: BP 140/90; PULSE 69; BMI 34.7
--- NOTE | 2024-05-16 13:41 | A.OFFVIS_ITS ---
Vital Signs 05/16/24 13:41 Height 5 ft Weight 177 lb 11.081 oz BMI 34.7 BP 140/90 H Blood Pressure Location Lt brachial Position Sitting Pulse 69 Pulse Source Pulse Oximeter Intake Visit Reasons: f/up-cath, 04/30 Medical Oncologist Required: No Allergies amoxicillin Allergy (Verified 05/16/24 13:45) Rash Sulfa (Sulfonamide Antibiotics) Allergy (Verified 05/16/24 13:45) Rash Medication List - Last Reconciled 05/16/24 by Shakira Gold, CLARK-C aspirin 81 mg PO DAILY clopidogrel 75 mg PO DAILY metoprolol tartrate 25 mg See Protocol PO BID HPI HPI f/up-cath, 04/30: Details: Madeline is a 63-year-old female with no significant past medical history who presented to [facility] on 04/30/2024 with chest discomfort that had started that day. She thought it was heartburn. Her EKG was nonischemic. Her troponin level was 7003. She was started on appropriate med management and transferred to [facility] for cardiac catheterization which showed SCAD to a small OM branch. She was started on aspirin and Plavix. She now presents for follow-up. Today she reports she has done well since her hospital discharge. She initially had a small aching discomfort in her left chest region which has since resolved. She has no exertional symptoms. No shortness of breath, PND, orthopnea or edema. No palpitations, lightheadedness, presyncope, syncope. Right radial catheterization site is well healed. Taking meds as directed. No bleeding issues reported. 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 [facility] Surgical History (Updated 05/16/24 @ 15:21 by Shakira Gold, JIG MILL OPERATOR-C) Hx of cardiac cath Status post hysteroscopic surgical removal of uterine septum Social History Alcohol intake: never Review of Systems Const All systems reviewed & are unremarkable except as noted in HPI and below ENT Denies dizziness Card Denies chest pain, Denies chest pain at rest, Denies chest pain with activity, Denies rapid heart rate, Denies pedal edema, Denies edema, Denies leg edema, Denies lightheadedness, Denies palpitations, Denies dyspnea, Denies dyspnea on exertion and Denies orthopnea Resp Denies cough, Denies dyspnea and Denies dyspnea on exertion GI Denies hematochezia and Denies change in stool character Musc Denies abnormal gait, Denies limited range of motion, Denies muscle cramps, Denies muscle weakness, Denies numbness, Denies radiating pain into limb, Denies stiffness and Denies tingling Neuro Denies abnormal gait, Denies dizziness, Denies numbness and Denies tingling Endo Denies palpitations Physical Exam Vital Signs: Last Vital Signs Pulse 69 05/16/24 13:41 BP 140/90 H 05/16/24 13:41 BMI result Body Mass Index 34.7 Const General: cooperative, healthy appearing, comfortable and no acute distress Orientation/consciousness: patient oriented x3 Neck Neck: Yes normal visual inspection and Yes no JVD Resp Effort & Inspection: normal respiratory effort Auscultation: clear to auscultation bilaterally, no crackles, no rales, no rhonchi and no wheezes Cardio Jugular venous distension: no JVD Rate: regular rate Rhythm: regular rhythm Heart sounds: S1 normal heart sound present, S2 normal heart sound present, no murmurs and no rubs Neuro General: patient oriented x3 Extrem Other: right radial cath site well healed General: Yes normal to inspection, No no pedal edema and No calf tenderness Psych Appearance: grossly normal Mental Status: mental status grossly normal Speech and movement: Normal speech and movement present Assessment & Plan Assessment & Plan (1) NSTEMI (non-ST elevated myocardial infarction): Code(s): I21.4 - Non-ST elevation (NSTEMI) myocardial infarction Category: Medical Plan: Recent episode of precordial chest pain unrelieved with antacids. After several hours she did present to the [facility] early a.m.04/30/24 and had troponin level 7003. Her EKG was not ischemic. She was started on IV heparin and given aspirin. She was transferred to [facility] for cardiac catheterization which was done 04/30 and showed SCAD in a small OM branch. Her other vessels were normal. Recommendations included Plavix uninterrupted for 6 months. Aspirin 81 mg daily and metoprolol 25 mg b.i.d.. Outpatient evaluation for fibromuscular dysplasia with CTA scanning of head to pelvis. Cardiac findings reviewed with her and she states understanding. She is currently asymptomatic. Will start cardiac rehab. No medication changes made. Will check a fasting lipid profile and plan to start statin therapy if needed once reviewed. Emergency care if ever needed for recurrent symptoms. Cardiology follow-up 3-4 months, sooner if needed (2) Spontaneous dissection of coronary artery: Comment: 04/30/2024 SCAD small OM branch Code(s): I25.42 - Coronary artery dissection Category: Medical (3) Hx of cardiac cath: Comment: 04/30/2024 left main, lad, RCA all normal, left circumflex normal, SCAD noticed in small OM branch, culprit lesion Code(s): Z98.890 - Other specified postprocedural states Category: Surgical Plan: Right radial catheterization site healed (4) Elevated BP without diagnosis of hypertension: Code(s): R03.0 - Elevated blood-pressure reading, without diagnosis of hypertension Category: Medical Plan: Blood pressure elevated today 140/90. She was running late for this appointment and states that is the reason for it to be high. Recheck done by me 136/88. Plan recheck at follow-up visit. (5) Fibromuscular dysplasia: Code(s): I77.3 - Arterial fibromuscular dysplasia Category: Medical Plan Time spent on chart review, documentation, interview and assessment Orders: Orders Cardiac Rehab Today I21.4 - Non-ST elevation (NSTEMI) myocardial infarction, I25.42 - Coronary artery dissection, Z98.890 - Other specified postprocedural states CT angio abdomen pelvis Today I25.42 - Coronary artery dissection, I77.3 - Arterial fibromuscular dysplasia CT angio head neck Today I25.42 - Coronary artery dissection, I77.3 - Arterial fibromuscular dysplasia CT angio chest aorta Today I25.42 - Coronary artery dissection, I77.3 - Arterial fibromuscular dysplasia Medications: New aspirin 81 mg PO DAILY 90 tabs 3RF clopidogrel Can stop after 6 months use 75 mg PO DAILY 90 tabs 1RF Changed From metoprolol tartrate 25 mg See Protocol PO BID 0 tabs 0RF To metoprolol tartrate 25 mg See Protocol PO BID 90 days 180 tabs 3RF Coding Level of Care Code Est Pt Level 4 (49037) Complex EM visit Add On G2211 Diagnoses NSTEMI (non-ST elevated myocardial infarction) I21.4 Spontaneous dissection of coronary artery I25.42 Hx of cardiac cath Z98.890 Elevated BP without diagnosis of hypertension R03.0 Fibromuscular dysplasia I77.3 Time Spent (min) 30
== END 2024-05-16 14:37 | disposition home or self-care (01) ==
LOC: HO.HCS 13:28
PROVIDERS: Visit Provider Nurse Practitioner Family
DX: I21.4 Non-ST elevation (NSTEMI) myocardial infarction (principal); I25.42 Coronary artery dissection; Z98.890 Other specified postprocedural states; R03.0 Elevated blood-pressure reading, without diagnosis of hypertension; I77.3 Arterial fibromuscular dysplasia
CPT/HCPCS: 99214

== ENCOUNTER → 2024-05-16 13:28 | Outpatient (BNVA) | payer BC, SELFPAY | PROVIDERS: Visit Provider Nurse Practitioner Family ==

== ENCOUNTER 2024-06-23 14:14 | Outpatient (REF) | payer BC, SELFPAY ==
[2024-06-23 15:52] LABS: Blood Urea Nitrogen 10 mg/dL (9-16); Estimated Glomerular Filt Rate > 60
== END 2024-06-23 14:15 | disposition home or self-care (01) ==
LOC: HO.LAB 14:14
PROVIDERS: PCP Nurse Practitioner Family; Visit Provider Nurse Practitioner Family
DX: I21.4 Non-ST elevation (NSTEMI) myocardial infarction (principal)
CPT/HCPCS: 36415; 82565; 84520

== ENCOUNTER 2024-07-15 08:50 | Outpatient (REF) | payer BC, SELFPAY ==
--- NOTE | ~2024-07-15 | CT_ITS ---
CLINICAL HISTORY: I25.42 - Coronary artery dissection CT Head without contrast. CT angiography head and neck with contrast. 3D Postprocessing. Comparison: None Findings: HEAD CT: No intra-axial mass, midline shift, hydrocephalus, or acute hemorrhage. No significant atrophy-like change or white matter disease. Near complete opacification of the left maxillary sinus. The orbits are unremarkable. There is no acute fracture. HEAD AND NECK CTA: Aortic arch and cervical great vessels are patent. Intracranial arteries are patent. No aneurysm, dissection, or occlusion. No abnormal intracranial enhancement. The visualized thyroid gland is unremarkable. No cervical mass or fluid collection. Lung apices clear. No acute fracture. IMPRESSION: 1. No acute intracranial abnormality. 2. Left maxillary sinus disease. 3. Patent head and neck CTA. This document has been electronically signed by: Marielena Jaffe MD on 07/16/2024 13:40:00
[2024-07-15] MEDS: iohexoL 350 MG/ML 100 ML INFUS..BTL IV (10:14)
== END 2024-07-15 08:51 | disposition home or self-care (01) ==
LOC: HO.CT 08:50
PROVIDERS: Visit Provider Nurse Practitioner Family
DX: I25.42 Coronary artery dissection (principal); I77.3 Arterial fibromuscular dysplasia
CPT/HCPCS: 70496; 70498; Q9967

== ENCOUNTER 2024-07-23 14:20 | Outpatient (REF) | payer BC, SELFPAY ==
--- NOTE | ~2024-07-23 | CT_ITS ---
CLINICAL HISTORY: I25.42 - Coronary artery dissection CT angiography chest with contrast. 3D Postprocessing. CT angiography abdomen and pelvis with contrast. 3D post-processing. Comparison: None Findings: Vascular: The aorta is normal in caliber and course. There is no significant atherosclerotic disease. There is no dissection or aneurysms. The mesenteric arteries are widely patent. The renal arteries are widely patent. The visualized neck vasculature is also widely patent. The central pulmonary vasculature visualized demonstrates no filling defect. Mild prominence of the main pulmonary trunk measuring up to 3.1 cm. Pelvic vasculature is widely patent. Nonvascular: Chest: No thyroid lesion. No mediastinal adenopathy or pericardial effusion. No pleural effusion or pneumothorax. No suspicious pulmonary lesion. Osseous structures of the chest are unremarkable. Abdomen and pelvis: The liver, gallbladder, spleen, adrenal glands, pancreas, kidneys, ureters and bladder are within normal limits. The uterus and adnexa are unremarkable. No bowel obstruction or free air. Mild fecal retention noted. Normal appendix. No free fluid, abscess or adenopathy. Impression: There is no evidence of dissection, stenosis or aneurysm involving the aorta or visualized branch vessels of the chest, abdomen or pelvis. Coronary arteries are not evaluated by this study. Mild prominence of the main pulmonary trunk. Correlation for mild pulmonary arterial hypertension. No acute process. This document has been electronically signed by: Arjun Melo MD on 07/24/2024 12:11:25
[2024-07-23] MEDS: iohexoL 350 MG/ML 100 ML INFUS..BTL IV (14:58)
== END 2024-07-23 14:21 | disposition home or self-care (01) ==
LOC: HO.CT 14:20
PROVIDERS: PCP Nurse Practitioner Family; Visit Provider Nurse Practitioner Family
DX: I77.3 Arterial fibromuscular dysplasia (principal); I25.42 Coronary artery dissection
CPT/HCPCS: 71275; 74174; Q9967

== ENCOUNTER → 2024-07-23 14:22 | Outpatient (BNV) | payer BC, SELFPAY | PROVIDERS: PCP Nurse Practitioner Family; Visit Provider Radiology Vascular & Interventional Radiology | DX: I25.42 Coronary artery dissection (principal) | CPT/HCPCS: 71275; 74174 ==

== ENCOUNTER 2024-09-22 13:54 | Outpatient (AMB) | payer BC, SELFPAY ==
--- NOTE | 2024-09-22 13:56 | MHC.OFFVIS ---
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 She was transferred to [facility] for cardiac catheterization which showed SCAD to a small OM branch. She was started on aspirin and Plavix. On last visit scans were ordered to evaluate for FMD and she was referred to cardiac rehab. She now presents for follow-up. Today she reports she continues to do well overall. She has had no recurrent chest discomfort. She has no shortness of breath, PND, orthopnea. No lightheadedness, presyncope, syncope. She attends cardiac rehab twice weekly and has good activity tolerance. Taking all meds as directed. No bleeding issues reported. She continues to work at her sedentary job. She plans to stop Plavix in October after 6 months of use. [facility] Surgical History Hx of cardiac cath Status post hysteroscopic surgical removal of uterine septum Social History Alcohol intake: never Review of Systems Const All systems reviewed & are unremarkable except as noted in HPI and below ENT Denies dizziness Card Denies chest pain, Denies chest pain at rest, Denies chest pain with activity, Denies rapid heart rate, Denies pedal edema, Denies edema, Denies leg edema, Denies lightheadedness, Denies palpitations, Denies dyspnea, Denies dyspnea on exertion and Denies orthopnea Resp Denies cough, Denies dyspnea and Denies dyspnea on exertion GI Denies hematochezia and Denies change in stool character Musc Denies abnormal gait, Denies limited range of motion, Denies muscle cramps, Denies muscle weakness, Denies numbness, Denies radiating pain into limb, Denies stiffness and Denies tingling Neuro Denies abnormal gait, Denies dizziness, Denies numbness and Denies tingling Endo Denies palpitations Physical Exam Vital Signs: Last Vital Signs Pulse 74 09/22/24 13:57 BP 140/80 H 09/22/24 13:57 BMI result Body Mass Index 34.3 Const General: cooperative, healthy appearing, comfortable and no acute distress Orientation/consciousness: patient oriented x3 Neck Neck: Yes normal visual inspection and Yes no JVD Resp Effort & Inspection: normal respiratory effort Auscultation: clear to auscultation bilaterally, no crackles, no rales, no rhonchi and no wheezes Cardio Jugular venous distension: no JVD Rate: regular rate Rhythm: regular rhythm Heart sounds: S1 normal heart sound present, S2 normal heart sound present, no murmurs and no rubs Neuro General: patient oriented x3 Extrem Other: right radial cath site well healed General: Yes normal to inspection, No no pedal edema and No calf tenderness Psych Appearance: grossly normal Mental Status: mental status grossly normal Speech and movement: Normal speech and movement present Assessment & Plan Assessment & Plan (1) NSTEMI (non-ST elevated myocardial infarction): Code(s): I21.4 - Non-ST elevation (NSTEMI) myocardial infarction Category: Medical Plan: NSTEMI 04/30/2024 with cardiac catheterization showing SCAD in a small OM branch that was managed medically, other vessels were normal. Echocardiogram 05/01/2024 showed EF 55-60%, mid to distal inferior lateral anterior lateral wall hypokinetic. CTA scans done to evaluate for FMD, and all results reviewed showing no acute abnormalities, no evidence of dissection, stenosis or aneurysms. Discussed findings with her. Continue cardiac rehab and/or routine exercise at home. Continue aspirin and low-dose metoprolol. Continue Plavix, for 6 months following NSTEMI. Will have her discontinue it 10/29/2024. Cardiology follow-up 6 months, sooner if needed. (2) Spontaneous dissection of coronary artery: Comment: 04/30/2024 SCAD small OM branch Code(s): I25.42 - Coronary artery dissection Category: Medical Plan: As above (3) Hx of cardiac cath: Comment: 04/30/2024 left main, lad, RCA all normal, left circumflex normal, SCAD noticed in small OM branch, culprit lesion Code(s): Z98.890 - Other specified postprocedural states Category: Surgical (4) Elevated BP without diagnosis of hypertension: Code(s): R03.0 - Elevated blood-pressure reading, without diagnosis of hypertension Category: Medical Plan: Blood pressure goal less than 130/80. Initially elevated at 1 40/80, recheck done by me later in the visit 06/16 . She tells me that at cardiac rehab they tell her her blood pressures are good. No med changes made. (5) Fibromuscular dysplasia: Code(s): I77.3 - Arterial fibromuscular dysplasia Category: Medical Plan: CTA scans of the head, neck, chest, abdomen, pelvis reports reviewed and make no mention of other vascular abnormalities Plan Time spent on chart review, documentation, interview and assessment Medications: Changed From clopidogrel Can stop after 6 months use 75 mg PO DAILY 90 tabs 1RF To clopidogrel 75 mg PO DAILY 30 tabs 0RF Coding Level of Care Code Est Pt Level 4 (29092) Complex EM visit Add On G2211 Diagnoses NSTEMI (non-ST elevated myocardial infarction) I21.4 Spontaneous dissection of coronary artery I25.42 Hx of cardiac cath Z98.890 Elevated BP without diagnosis of hypertension R03.0 Fibromuscular dysplasia I77.3 Time Spent (min) 32
[2024-09-22 13:57] VITALS: BP 140/80; PULSE 74; BMI 34.3
--- OUTSIDE RECORDS SUMMARY | 2024-09-22 16:40 | XMS_ITS | Continuity of Care Document ---
Author Organization [facility] Address [address] [place] [address]- Care Team Providers Care Skiver Machine Name Role Phone Tony RODAS, Macrina Chao Primary Care Physician Encounter [facility] Date(s): 08/18/24 - 09/17/24 [facility] [address] [place], [place] [address] Encounter Type: Triage Allergies, Adverse Reactions, Alerts Substance Criticality Severity Reaction Reaction Severity Status penicillin Active sulfa drugs Active Immunizations Given and Recorded Vaccine Date Status Refusal Reason tetanus/diphtheria/pertussis, acel(Tdap) 07/29/24 Given SARS-CoV-2 (COVID-19) mRNA-1273 vaccine 10/28/20 R ecorded SARS-CoV-2 (COVID-19) mRNA-1273 vaccine 09/28/20 R ecorded zoster vaccine, inactivated 05/18/20 Recorded zoster vaccine, inactivated 03/12/20 Recorded influenza virus vaccine, inactivated 03/12/20 Saeed rded influenza virus vaccine, inactivated 03/13/18 Saeed rded influenza virus vaccine, inactivated 03/07/17 Saeed rded Medications aspirin 81 mg oral tablet, chewable 1 tablet = 81 mg, By Mouth, Daily, # 30 tablet, 1 Refills, Maintenance, 05/01/24 7:31:00 AM EST, Chew Tablet, [facility], Partial fill upon patient request [...] 7:32:00 AM EST, Route to Pharmacy Electronically, [facility], Partial fill upon patient request if the prescription is for a schedule II opioid drug., 152, cm, 05/01/24 1:24:00 EST,Height, 79.6, kg, 04/30/24 12:30:00 EST, Dry Weight Start Date: 05/01/24 Stop Date: 06/30/24 Status: Ordered Quantity: 60.0 Unit: tablet Repeat number: 2 Plavix 75 mg oral tablet 75 mg, 1, tablet, By Mouth, Daily, # 30 tablet, Refills 1, Tot. Refills 1, Maintenance, 05/01/24 7:32:00 AM EST, Route to Pharmacy Electronically, [facility], Partial fill upon patient request if the prescription is for a schedule II opioid drug., 152, cm, 05/01/24 1:24:00 EST, Height,79.6, kg, 04/30/24 12:30:00 EST, Dry Weight Start Date: 05/01/24 Stop Date: 06/30/24 Status: Ordered Quantity: 30.0 Unit: tablet Repeat number: 2 Problem List Condition Confirmation Course Effective Dates Status Health St atus Informant Spontaneous dissection of coronary artery Confirmed Active NSTEMI (non-ST elevated myocardial infarction) Confirmed Active Obese class I Confirmed Active Prediabetes Confirmed Active Social History Social History Type Response Smoking Status Never (less than 100 in lifetime) entered on: 10/27/20 Sex Sex Representation Female (finding) Patient Care team information Care Team Personnel Name: Macrina Jimenez NP Position: [facility] Associate Professional Member Role: PCP Address: [address] [place] [id number] Telecom: Name: Jenny Melgar RN Position: S RN Member Role: Primary Care Nurse Name: Bushra Díaz RN Position: S RN Member Role: Primary Care Nurse Care Team Related Persons Name: MARYLU PRADHAN Name: MERRICK PEREZ Insurance Providers Guarantor name[facility]: [facility] Payer: [employer] Member Number: NA Policy Number: NA Group Number: NA
== END 2024-09-22 14:17 | disposition home or self-care (01) ==
LOC: HO.HCS 13:55
PROVIDERS: Visit Provider Nurse Practitioner Family
DX: I21.4 Non-ST elevation (NSTEMI) myocardial infarction (principal); I25.42 Coronary artery dissection; Z98.890 Other specified postprocedural states; R03.0 Elevated blood-pressure reading, without diagnosis of hypertension; I77.3 Arterial fibromuscular dysplasia
CPT/HCPCS: 99214

== ENCOUNTER 2024-10-01 07:00 | Outpatient (RCR) | payer BC, SELFPAY | END 2024-10-07 14:21 | disposition home or self-care (01) | LOC: HO.CR 07:00 | PROVIDERS: Visit Provider Nurse Practitioner Family | DX: I21.4 Non-ST elevation (NSTEMI) myocardial infarction (principal); I25.42 Coronary artery dissection; Z98.890 Other specified postprocedural states | CPT/HCPCS: 93798 ==

== ENCOUNTER 2025-03-25 14:03 | Outpatient (AMB) | payer BC, SELFPAY ==
--- NOTE | 2025-03-25 14:13 | MHC.OFFVIS ---
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 In April 2024 she presented with chest discomfort and ruled in for NSTEMI. She was taken for cardiac catheterization which showed SCAD in his small OM branch. This was medically treated and she has improved. She on follow-up he is denying any symptoms. Taking medication regularly. Blood pressure well controlled. She is on baby aspirin and metoprolol tartrate 25 mg twice a day. [facility] Surgical History Hx of cardiac cath Status post hysteroscopic surgical removal of uterine septum Social History Alcohol intake: never Review of Systems Const Denies chills, Denies fatigue, Denies fever(s), Denies frequent falls, Denies weakness, Denies weight gain and Denies weight loss ENT Denies dizziness Card Denies chest pain, Denies leg edema, Denies lightheadedness, Denies palpitations, Denies dyspnea and Denies dyspnea on exertion Resp Denies cough, Denies dyspnea and Denies dyspnea on exertion GI Denies hematochezia Musc Denies abnormal gait, Denies muscle weakness, Denies numbness, Denies radiating pain into limb and Denies tingling Neuro Denies abnormal gait, Denies dizziness, Denies frequent falls, Denies numbness, Denies tingling and Denies weakness Endo Denies fatigue and Denies palpitations Physical Exam Vital Signs: Last Vital Signs Pulse 67 03/25/25 14:14 BP 130/80 03/25/25 14:14 BMI result Body Mass Index 36.2 GENERAL APPEARANCE: in no acute distress, pleasant. NECK: no carotid bruit, no jugular venous distention. SKIN: no suspicious lesions, warm and dry. HEART: no murmurs, regular rate and rhythm. LUNGS: clear to auscultation bilaterally. ABDOMEN: soft, nontender. EXTREMITIES: no edema. PERIPHERAL PULSES: equal. NEUROLOGIC: No gross deficits, AAO X 3 Office Procedures EKG Details: Sinus rhythm 67 beats per minute, normal axis, normal ECG, QTC 407 milliseconds. [id number], Complete Assessment & Plan Assessment & Plan (1) Spontaneous dissection of coronary artery: Comment: 04/30/2024 SCAD small OM branch Code(s): I25.42 - Coronary artery dissection Category: Medical Plan Pleasant 64 year lady with mild NSTEMI due to spontaneous coronary artery dissection involving obtuse marginal branch. Blood pressure well controlled. Taking medications regularly. On aspirin and metoprolol. I have advised her not to do strenuous exercise but should continue moderate exercise. She will follow-up with us in 1 year. Thank you for allowing me to participate in the care of your patient. Please feel free to contact me if you have any questions. Coding Level of Care Code Est Pt Level 4 (57973) Diagnoses Spontaneous dissection of coronary artery I25.42 CPT Codes EKG - CPT: 39756-[id number], Complete ([id number])
[2025-03-25 14:14] VITALS: BP 130/80; PULSE 67; BMI 36.2
== END 2025-03-25 14:36 | disposition home or self-care (01) ==
LOC: HO.HCS 14:03
PROVIDERS: Visit Provider Internal Medicine Cardiovascular Disease
DX: I25.42 Coronary artery dissection (principal)
CPT/HCPCS: 93010; 99214

== ENCOUNTER → 2025-03-25 14:03 | Outpatient (BNVA) | payer BC, SELFPAY | PROVIDERS: Visit Provider Internal Medicine Cardiovascular Disease | DX: I25.42 Coronary artery dissection (principal) | CPT/HCPCS: 93005 ==